=== PATIENT | female | born 1950 ===

== ENCOUNTER 2016-08-23 17:27 | Inpatient (IN) | payer MEDICARE, MEDICAID ==
[2016-08-23] VITALS (10 sets, daily range): BP systolic 75–121; BP diastolic 52–92; PULSE 64–81; RESP 16–24; O2SAT 90–100
[~2016-08-23] VITALS: Ht 165.1 cm; Wt 78.5 kg
[~2016-08-23 17:27] MED LIST: ALBU17AE22 INH; AMLO-39 PO; CIPR250T45 PO; KEP500T PO; LOPRESSOR25 MG PO; POTA10TA23 PO; PRINIVIL PO; [UNRECOGNIZED DRUG - CODE] PO; tylenol #3 PO
[2016-08-23] MEDS ORDERED: 0.9% Sodium Chloride 1,000 ML IV ONE ×4 (17:36→19:00)
[2016-08-23] MEDS ORDERED: Albuterol-Ipratropium 3 mL Inhalation Solution NEB ONE (17:40)
[2016-08-23 17:50] LABS: BASOPHILS % (AUTO) 0.1 % (0-3); EOSINOPHILS % (AUTO) 0 % (0-5); MONOCYTES % (AUTO) 3.3 % (4-12); Mean Corpuscular Hemoglobin 28.6 pg (27.0-35.0); Mean Corpuscular Volume 93.6 fL (81-100); NEUTROPHILS % (AUTO) 92.7 % (40-74); Platelet Count 239 bil/L (150-400)
[2016-08-23] MEDS ORDERED: Ketamine 10 mg/mL 20 mL Inj ONE (17:56)
[2016-08-23] MEDS ORDERED: Ketamine 10 mg/mL 20 mL Inj IV ONE ×2 (18:00→20:00)
--- NOTE | 2016-08-23 18:04 | ABG ---
DateTimeAnalyzed 18:00:00 -_ pH ____7.133 - pCO2 ___80.4__ -mmHg pO2 ___24.8__ -mmHg HCO3- ___25.8__ -mmol/L ABE ___-3.9__ -mmol/L tHb ____9.5__ -g/dL O2Hb ___37.5__ -% COHb ____3.9__ -% MetHb ____1.1__ -% sO2 ___39.5__ -% FIO2 ___31.0__ -% Drawn By lab - Date/Time Notified____ 18:04:00 -_ Oxygen Device 1 __CANNULA - Notified By jj - Notified Whom dr okelley - Age 60 -years B 760 -mmHg tO2 ____5.0__ -Vol% Pj test N/A -
[2016-08-23] MEDS ORDERED: Ondansetron 2 mg/mL 2 mL Inj IVPUSH ONE ×2 (18:25→18:45)
--- NOTE | 2016-08-23 18:25 | DRSVH ---
PROCEDURE: X-RAY CHEST ONE VIEW, PORTABLE ([id number]) INDICATIONS: 66 year-old female with hypoxia, fever and cough. TECHNIQUE: One view of the chest was acquired. COMPARISON: [facility], , ABD ACUTE SERIES, 05/12/2014, 17:51. [facility] , , CHEST 1VW (PORTABLE), 02/23/2014, 21:36. [facility], , CHEST 2VW, 02/22/2014, 12: 33. FINDINGS: Surgical changes and devices: None. Lungs and pleura: No pleural effusions or pneumothorax. Patchy right perihilar air space opacities a re present. Mediastinum: Mediastinal contours appear normal. Heart size is normal given AP technique. Bones and chest wall: No suspicious bony lesions. Overlying soft tissues appear unremarkable. IMPRESSION: Patchy right perihilar aspiration versus early pneumonia. Dictated by: Luis Manuel Moran M.D. on 08/23/2016 at 18:23 Approved by: Luis Manuel Moran M.D. on 08/23/2016 at 18:23
[2016-08-23 18:26] LABS: Magnesium 1.6 mg/dL (1.6-2.6)
--- NOTE | 2016-08-23 18:28 | ED.REPORT ---
HPI-Dyspnea / Wheezing Date of Service Aug 23, 2016 ED Provider: Nicholas Spivey MD A 66 year old female with a history of pneumonia, insomnia, seizures, osteoarthritis, hypertension, asthma, and presumed sleep apnea is brought to the ED via EMS due to shortness of breath. The pt reports that she always experiences some difficulty breathing, but is worse today. This is accompanied by a productive cough, though she denies bloody sputum. She also denies chest pain, nausea, fever, or chills. Per pt's daughter, the pt exerted herself more than usual last night by cooking for a large family. She then slept all day today despite attempts to wake her. Pt's daughter suspects that this is due to the pt taking too much trazodone and gabapentin last night, as well as possibly other pain medications given to the pt by friends. The pt has been given such pain medication before due to the her osteoarthritis pain, and has overdosed. Pt was altered at initial presentation in the ED, but improves significantly within 1.5 hours. Nursing Notes Stated Complaint: SHORTNESS OF BREATH Chief Complaint: Respiratory Complaints Nursing Notes Reviewed: Yes ([employer], [employer] not reconciled) Allergies: Coded Allergies: Penicillins (Verified Allergy, Severe, HIVES AND SWOLLEN TONGUE, 08/23/16) ibuprofen (Verified Allergy, Unknown, 08/23/16) Family state pt gets a rash. Scheduled AmLODIPine-Expunged Drug, Do Not Renew! (AmLODIPine-Expunged Drug, Do Not Renew! ) 5 Mg Tablet 5 MG PO DAILY Ciprofloxacin Hcl (Cipro) 250 Mg Tablet 250 MG PO BID Lisinopril-Expunged Drug, Do Not Renew! (Lisinopril-Expunged Drug, Do Not Renew! ) 40 Mg Tablet 40 MG PO DAILY MAGNESIUM OXIDE-Expunged Drug, Do Not Renew! (MAG-OX 400-Expunged Drug, Do Not Renew!) 400 Mg Tablet 400 MG PO DAILY Metoprolol Tart-Expunged Drug, Do Not Renew! (Metoprolol Tart-Expunged Drug, Do Not Renew!) 25 Mg Tab 25 MG PO BID Potassium Chl-Expunged Drug, Do Not Renew! (R-Pnw-Asjgtvco Drug, Do Not Renew!) 10 Meq Tab.prt.sr 10 MEQ PO DAILY levETIRAcetam-Expunged Drug, Do Not Renew! (Keppra-Expunged Drug, Do Not Renew! ) 500 Mg Tablet 500 MG PO BID Scheduled PRN ([tylenol #3 ]) 1 TAB PO QID PRN PRN as needed for pain Albuterol-Expunged Drug, Do Not Renew! (Albuterol-Expunged Drug, Do Not Renew!) 8.5 Gm Aero 8.5 GM INH QID PRN PRN General Time Seen by MD: 18:16 Chief Complaint Other (Difficulty breathing) Hx Obtained From: Patient, Daughter, EMS Arrived By: Ambulance Sudden in Onset?: No Onset Occurred: 9 - 12 hours ago Symptom Duration: Since onset Recent Healthcare: No recent doctor visit, No recent hospitalization Similar Sx Previous: No Past Medical History Past Medical History Notes: Admit for seizure in 2010 Past Medical History History of seizure Hypertension History of URETHRITIS Pneumonia Insomnia History of depression Asthma History of polysubstance overdose attempt History of presumed obstructive sleep apnea but not yet had a sleep study as of 2010 Past Surgical History none reported Smoking History Current Every Day Smoker Social History Drug Use: Other (history of narcotics abuse per EMR, no history of IVDA) Other Social History: Good social support Ambulatory Status Independent Review of Systems Constitutional: Denies: Chills, Fever Respiratory: Reports: Prod cough, clear, Shortness of breath, Denies: Prod cough, bloody Cardiovascular: Denies: Chest pain Musculoskeletal: Denies: Back pain, Neck pain Skin: Denies Rash Complete sys rev & neg: except as marked. GI: Denies: Abdominal pain, Nausea Psychiatric: Reports: Confusion Physical Exam Initial Vital Signs Vital Signs (First) Date Time Temp Pulse Resp B/P Pulse Ox O2 Delivery O2 Flow Rate FiO2 08/23/16 17:29 81 96 Room Air 08/23/16 17:48 37.7 24 114/92 3 08/23/16 18:19 40 Initial VS: Reviewed, Vital signs abnormal General/Constitutional: Awake, Alert Appearance / Presentation: Positive: Obese sitting upright on BiPAP answers questions appropriately at this point coughing Neck: Atraumatic, Supple, Full range of motion Respiratory / Chest: Atraumatic, Breath sounds = bilat, No respiratory distress diminished breath sounds Cardiovascular: Heart rate NL, Regular rhythm, Heart sounds NL has pulse but getting low blood pressures ENT: Atraumatic, Airway patent, Mucous membranes moist Abdomen: Atraumatic, Soft, Non-tender Back: Atraumatic, Full range of motion Lower Extremity / Pelvis / MS: Atraumatic, Full range of motion, No edema Skin: Atraumatic, Color NL, No rash, Warm, Dry Neurologic: Oriented X3, Speech NL, No motor deficits, No sensory deficits Head / Eyes: Atraumatic, Normocephalic, PERRL, EOMI Upper Extremity / MS: Atraumatic, Full range of motion Psychiatric: Affect NL, Mood NL Interpretation & Diagnostics Lab Results Interpretation Result Diagram: 08/23/16 1740 08/23/16 1740 Test 08/23/16 17:40 White Blood Count 24.0th/mm3 (3.8-10.1) Red Blood Count 3.60mil/mm3 (3.90-5.20) Hemoglobin 10.3g/dL (12.0-15.6) Hematocrit 33.7% (35.0-46.0) Mean Corpuscular Volume 93.6fL (81-100) Mean Corpuscular Hemoglobin 28.6pg (27.0-35.0) Mean Corpuscular Hemoglobin Concent 30.6% (32.0-37.0) Red Cell Distribution Width 13.6% (12.3-15.4) Platelet Count 239bil/L (150-400) Neutrophils (%) (Auto) 92.7% (40-74) Lymphocytes (%) (Auto) 3.0% (14-46) Monocytes (%) (Auto) 3.3% (4-12) Eosinophils (%) (Auto) 0% (0-5) Basophils (%) (Auto) 0.1% (0-3) D-Dimer 1.6mg/L (<0.50) Sodium Level 133mEq/L (134-144) Potassium Level 4.3mEq/L (3.5-5.2) Chloride Level 94mEq/L (97-108) Carbon Dioxide Level 22mmol/L (18-29) Blood Urea Nitrogen 29mg/dL (8-27) Creatinine 2.54mg/dL (0.57-1.00) Estimat Glomerular Filtration Rate 27mL/min (>59) Glucose Level 70mg/dL (60-99) Calcium Level 8.4mg/dL (8.5-10.1) Magnesium Level 1.6mg/dL (1.6-2.6) Total Bilirubin 0.5mg/dL (0.0-1.2) Aspartate Amino Transf (AST/SGOT) 24U/L (0-50) Alanine Aminotransferase (ALT/SGPT) 8U/L (0-32) Alkaline Phosphatase 92U/L (25-165) Troponin T < 0.010ug/L (0.0-0.011) Total Protein 6.5g/dL (6.4-8.4) Albumin 3.1g/dL (3.4-5.0) Lab Results Interpretation: blood gas: pH 7.1333/pCO2 80/pO 24.8/cHCO3- 25.8/cBase -3.9 ABCs severe leukocytosis CMP renal failure, acuity uncertain Severe lactic acid elevation consistent with septic shock Influenza negative blood cultures cultures 2 blood gas 21:18: pH 7.363/pCO2 33/pO2 69.2/cHCO3- 18.4/cBase -5.9 ECG Interpretation ECG Interpretation: normal sinus rhythm with a rate of 68 borderline QTC elevation no ischemic changes Time: 19:07 Interpreted by: ED physician X-Ray Chest Interpretation Chest Xray Interpretation: IMPRESSION: Patchy right perihilar aspiration versus early pneumonia. Dictated by: Luis Manuel Moran M.D. on 08/23/2016 at 18:23 Approved by: Luis Manuel Moran M.D. on 08/23/2016 at 18:23 Interpretation / Wet Read by: Interpret - Radiologist Chest Xray Interpretation: IMPRESSION: 1. Interval increased bibasilar aspiration versus evolving bronchopneumonia. 2. New endotracheal tube tip is at the thoracic outlet. Dictated by: Luis Manuel Moran M.D. on 08/23/2016 at 19:54 Approved by: Luis Manuel Moran M.D. on 08/23/2016 at 19:54 Interpretation / Wet Read by: Interpret - Radiologist Chest Xray Interpretation: ET tube in good position just above malik Interpretation / Wet Read by: Wet read ED physician Procedures Intubation Time: 19:16 Procedure Performed by: ED physician Consent / Setup / Site Prep: Consent from patient, Time-out performed, Oxygen administered, Pulse oximeter applied, cardiac monitor technician applied, Hand hygiene observed Blade / ET Tube / Route: Hazard scope, Route: oral Procedural Sedation/Analgesia: Sedation: Ketamine Neuromuscular Agent: Succinylcholine ET Confirmation: CXR Complications: None Post-Procedure: Condition improved, Tolerated procedure well, Patient stable Re-Eval/Medical Decision Med Decision/Clinical Course This is a 66-year-old female since with altered mental status and shortness of breath. Initial history is from EMS, supplemented by friends and family, and the patient. This is a patient's had prior issues with medication overdose, has not been to the hospital for a number of years-and has chronic pain from arthritis. According to family she had a big event yesterday she prepared dinner did not some activities and they think overexerted herself, and he noticed that she was much less active" mostly down" for the majority of the day. We do note that from time to time but she is not currently on narcotics prescribed to her, she has severe pain and a flareup she has been able to get some pain medicine-sided his methadone and oxycodone to help with her chronic pain, and wonder if she may have done that today. They then noted that they were having difficulty getting her up and when they got her up she is complaining of shortness of breath so EMS was contacted. EMS the patient was profoundly hypoxic and hypotensive and somewhat altered. On arrival here she remained hypoxic, hypotensive and ill. She was initially alert enough answering questions that she did not. She needed an emergent intubation. A blood gas was obtained and did not demonstrate hypercapnic respiratory failure and the patient was started on BiPAP. She clinically seems improved with this and became much more alert and interactive telling she is having cough and trouble breathing, that started today. So she seemed to clinically be responded. A chest x-ray demonstrated an infiltrate. Influenza was negative. Upper we were having labile blood pressures 1 blood pressure below, subsequent blood pressure would be adequate in the low 100s, and the patient sitting up and talking to us and her mentation was markedly improved from her initial presentation per family. However, while in the ED she suddenly got worse. Her blood pressure went down and her responsiveness decreased-at this point the decision was made to proceed with intubation. Patient underwent rapid sequence intubation with ketamine due to the hypotension is sedative agency and succinylcholine. She was in anterior and somewhat difficult intubation with 4 views of the cords, but the gum elastic bougie was able to easily be passed and a 7/2 ET tube was placed. There were no evidence of any desaturation patient had been preoccupied on BiPAP and satting 100% throughout the procedure, and positive end-tidal CO2 waveform and follow-up chest x-ray confirmed the tube in the trachea, although the chest x-ray indicated there was high at the thoracic abdomen line and it was advanced follow-up chest x-ray demonstrated it in proper position. The patient seemed multiple liters of fluid but remained hypotensive was given empiric dose of steroids, and norepinephrine pressors was ordered-but as a PICC line was obtained, and patient received prescription for liters of saline, the blood pressure across the 95 systolic range greater than a map of 65/pressors were not initiated. The [facility] modified with cefepime for her penicillin allergy (again per hospital protocol). Utox was obtained and was negative. At this point the clinical history strongly suggests patient may have taken some sort of medication to help with her discomfort that caused sedation, lead to aspiration and hypoxia in the setting of suspected sleep apnea and is now resulting in septic shock. Patient's being admitted to the unit for continued management. Source of Hx: Old records Re-Evaluation/Progress #1: Time of Eval: 19:16 Patient Status: Condition improved Re-Evaluation/Progress Note: Pt rechecked, whose blood pressure and responsiveness are decreasing. Pt is intubated without complications and pt's condition improves. Re-Evaluation/Progress #2: Time of Eval: 20:08 Patient Status: Condition unchanged Re-Evaluation/Progress Note: Pt rechecked, who is intubated. Additional sedation is administered. The plan for admission is discussed with the pt's family. Pt family understands and agrees with the plan. All questions are addressed at this time. Consultation : Referral / Consult Name: Mayte Faustin MD Consulted With: Hospitalist Call Returned at: 19:41 Licensed Practical Nurse Instructor: Agrees with eval, Agrees with plan, Accepts admit Note: Spoke to Dr. Faustin, hospitalist, regarding pt's case. Dr. Faustin agrees with the evaluation and agrees to admit the pt. Differential Diagnosis: Positive: Pneumonia, Respiratory failure, Negative: Acute coronary syndrome, Anxiety, Cardiogenic shock, Hypertensive emergency, Hyperventilation, Inhalation injury Counseled Regarding: Diagnosis, Lab results, Need for admission Discharge & Departure Impression: Primary Impression: Hypercapnic respiratory failure Chronicity: acute Qualified Code: J96.02 - Acute respiratory failure with hypercapnia Additional Impressions: Aspiration pneumonia Aspiration pneumonia type: unspecified Laterality: right Lung location: unspecified part of lung Qualified Code: J69.0 - Pneumonitis due to inhalation of food and vomit Difficult airway for intubation Encounter type: initial encounter Qualified Code: T88.4XXA - Failed or difficult intubation, initial encounter Renal failure Septic shock Disposition: ADMITTED TO HOSPITAL Discharge Condition All VS Reviewed: Yes Condition: Stable Referrals: NOPCP (PCP) Crit Care Except Billable Proc Time Spent: 75-104 minutes Scribe Attestation Portions of this note were transcribed by Rhoda Cai. I, Dr. Spivey personally performed the history, physical exam and medical decision-making; I reviewed and confirmed the accuracy of the information in the transcribed note. Signed by: Sarath Tucker, 08/23/2016, 21:39 Nicholas Spivey MD Aug 23, 2016 18:28 RHODA CAI Aug 23, 2016 18:54
[2016-08-23] MEDS ORDERED: Cefepime Inj 2 GM in IV Premix 1 EACH IV ONE (18:35)
[2016-08-23] MEDS ORDERED: levoFLOXacin Inj 750 MG in IV Premix 1 EACH IV ONE (18:35)
[2016-08-23] MEDS ORDERED: Vancomycin Dose per Pharmacist XX ONE (18:35)
[2016-08-23] MEDS ORDERED: Cefepime Inj 2 GM in Dextrose 5% Minibag Plus 50 ML IV ONE (18:36)
[2016-08-23 18:41] LABS: TROPONIN T < 0.010 ug/L (0.0-0.011)
[2016-08-23] MEDS ORDERED: Cefepime Inj 2,000 MG in Dextrose 5% Minibag Plus 50 ML IV SCH (18:41)
[2016-08-23] MEDS ORDERED: metroNIDAZOLE Inj 500 MG in IV Premix 1 EACH IV ONE (18:45)
[2016-08-23] MEDS ORDERED: Sodium Chloride LOK Flush 10 mL Syringe IVFLUSH PRN ×2 (18:45)
[2016-08-23] MEDS ORDERED: Hydrocortisone 50 mg/mL 2 mL Inj IVPUSH ONE (19:35)
[2016-08-23] MEDS ORDERED: Ketamine 100 mg/mL 5 mL Inj ONE (19:46)
[2016-08-23] MEDS ORDERED: Ketamine 100 mg/mL 5 mL Inj IV ONE (19:50)
[2016-08-23] MEDS ORDERED: Vancomycin Inj 1,750 MG in Dextrose 5% 500 ML IV ONE ×2 (19:55→20:50)
--- NOTE | 2016-08-23 19:56 | DRSVH ---
PROCEDURE: X-RAY CHEST ONE VIEW, PORTABLE ([id number]) INDICATIONS: 66-year-old female with intubation. TECHNIQUE: One view of the chest was acquired. COMPARISON: [facility], CR, XR CHEST 1VW (PORTABLE), 08/23/2016, 17:58. [facility], CR, ABD ACUTE SERIES, 05/12/2014, 17:51. [facility], CR, CHEST 1VW (PORTABLE), , 21:36. FINDINGS: Surgical changes and devices: New endotracheal tube is present, with tip 7.5 cm above the malik. Lungs and pleura: No pleural effusions or pneumothorax. There are interval increased bibasilar airsp raghavendra opacities.. Mediastinum: Mediastinal contours appear normal. Heart size is normal given AP technique. Bones and chest wall: No suspicious bony lesions. Overlying soft tissues appear unremarkable. IMPRESSION: 1. Interval increased bibasilar aspiration versus evolving bronchopneumonia. 2. New endotracheal tube tip is at the thoracic outlet. Dictated by: Luis Manuel Moran M.D. on 08/23/2016 at 19:54 Approved by: Luis Manuel Moran M.D. on 08/23/2016 at 19:54
[2016-08-23] MEDS ORDERED: Vecuronium 1,000 mCg/mL 10 mL Inj IVPUSH ONE (20:05)
[2016-08-23] MEDS: fentaNYL-PF 50 mCg/mL 2 mL Inj IVPUSH ONE ×2 (20:08→20:10)
[2016-08-23] MEDS ORDERED: Alum-Mag Hydrox-Simeth 30 mL Suspension PO PRN (20:40)
[2016-08-23] MEDS ORDERED: Ondansetron 2 mg/mL 2 mL Inj IVPUSH PRN (20:40)
[2016-08-23] MEDS ORDERED: Polyethylene Glycol (PEG) 17 Gm Powder PO PRN (20:40)
[2016-08-23] MEDS ORDERED: Senna-Docusate 8.6-50 mg Tablet PO PRN (20:40)
--- NOTE | 2016-08-23 21:19 | DRSVH ---
PROCEDURE: X-RAY PICC LINE PLACEMENT BY NURSE ([id number]) INDICATIONS: 66 year-old female with septic shock. COMPARISON: None. FINDINGS: PICC was placed by the intravenous therapy team. Fluoroscopic spot film demonstrates tip of PICC in the cavoatrial junction. IMPRESSION: Tip of PICC lies within the cavoatrial junction. Dictated by: Luis Manuel Moran M.D. on 08/23/2016 at 21:17 Approved by: Luis Manuel Moran M.D. on 08/23/2016 at 21:17
--- NOTE | 2016-08-23 21:29 | ABG ---
DateTimeAnalyzed 21:23:00 -_ pH ____7.363 - 7.350 7.450 pCO2 ___33.1__ -mmHg 35.0 45.0 pO2 ___69.2__ -mmHg 69.0 116 HCO3- ___18.4__ -mmol/L 22.0 26.0 ABE ___-5.9__ -mmol/L -2.0 2.0 tHb ____8.0__ -g/dL O2Hb ___92.6__ -% COHb ____2.4__ -% MetHb ____1.1__ -% sO2 ___96.0__ -% FIO2 ___50.0__ -% PEEP ____5.0__ -cmH2O Set_RR ___18.0__ -b/min Vt __450.0__ -L Drawn By MM - Date/Time Notified____ 21:28:00 -_ Spontaneous_RR ___18.0__ -b/min Oxygen Device 1 VENTILATOR - Notified By MM - Notified Whom DR KING - Age 60 -years B 762 -mmHg tO2 ___10.5__ -Vol% Pj test N/A -
--- NOTE | 2016-08-23 21:31 | DRSVH ---
PROCEDURE: X-RAY CHEST ONE VIEW, PORTABLE ([id number]) INDICATIONS: 66 year-old female with endotracheal tube adjustment and PICC placement. TECHNIQUE: One view of the chest was acquired. COMPARISON: [facility], CR, XR CHEST 1VW (PORTABLE), 08/23/2016, 19:42. [facility], CR, XR CHEST 1VW (PORTABLE), 08/23/2016, 17:58. [facility], CR, ABD ACUTE SERIES, 05/12/2014, 17:51. FINDINGS: Surgical changes and devices: Endotracheal tube has been advanced, with tip now 4.8 cm above the davis na. New right PICC is present, with tip at the cavoatrial junction. Lungs and pleura: No pleural effusions or pneumothorax. Bibasilar opacities persist, more extensive on the right. Mediastinum: Mediastinal contours appear normal. Heart size is normal. Bones and chest wall: No suspicious bony lesions. Overlying soft tissues appear unremarkable. IMPRESSION: 1. Endotracheal tube and right PICC are in expected positions. 2. Persistent bibasilar aspiration versus bronchopneumonia. Dictated by: Luis Manuel Moran M.D. on 08/23/2016 at 21:30 Approved by: Luis Manuel Moran M.D. on 08/23/2016 at 21:30
[2016-08-23 22:36] LABS: APPEARANCE,URINE HAZY (CLEAR,HAZY); COLOR,URINE DARK YELLOW (YELLOW); OCCULT BLOOD,URINE NEGATIVE (NEGATIVE); UROBILINOGEN,URINE NORMAL (NORMAL)
[2016-08-23] MEDS: Norepineph 8,000 mCg/250 mL NS 8,000 MCG in IV Premix 1 EACH IV SCH (22:57)
[2016-08-23] MEDS: Famotidine Inj 50 ML IV SCH (22:57)
--- NOTE | 2016-08-23 23:00 | NUR ---
Pt admitted from ED and transferred via gurney. Pt was oxygenated with ambu bag during transport. Moved over to ccu bed with slide board and hooked up to ventilator. Vent settings: 50/5/18/450 with sats at 100%. Lung sounds equal bilat. and slightly course. Pt is flaccid and unresponsive sec to sedation given during intubation in the ED. Restraints started in the ED and continued in CCU at 2300 upon admit to protect lines/tubes. Will continue to monitor pt closely. Supportive family at bedside.
[2016-08-23] MEDS ORDERED: 0.9% Sodium Chloride 250 ML ONE (23:05)
[2016-08-24] VITALS (12 sets, daily range): BP systolic 107–141; BP diastolic 48–73; PULSE 53–70; RESP 14–18; O2SAT 99–100
[2016-08-24] MEDS ORDERED: CITA20TA11 PO (00:43)
[2016-08-24] MEDS ORDERED: ALBU8.5H2 INHALATION (00:43)
[2016-08-24] MEDS ORDERED: HYDR25TA4 PO (00:43)
[2016-08-24] MEDS ORDERED: GABA-502 PO (00:43)
[2016-08-24] MEDS ORDERED: PIRO20CA2 PO (00:43)
[2016-08-24] MEDS ORDERED: MONT10TA23 PO (00:43)
[2016-08-24] MEDS ORDERED: FEXO1TAB4 PO (00:43)
[2016-08-24] MEDS ORDERED: FLUT16SP NS (00:43)
[2016-08-24] MEDS ORDERED: TRAZ-115 PO (00:43)
--- NOTE | 2016-08-24 01:38 | PCM.HPMED ---
Subjective Date of Service Aug 23, 2016 Primary Provider: Admitting Physician: Klaudia Gonzalez MD Primary Care Physician: [place] Attending Physician: Klaudia Gonzalez MD Chief Complaint: Dyspnea History of Present Illness: Patient is a 66-year-old female with seizures, osteoarthritis, hypertension and presumed sleep apnea presenting with dyspnea. Patient is accompanied at bedside by family at time of visit. Much of the history is obtained from her son and [id number] as the patient is currently sedated and intubated on the ventilator. Per the patient's son, the patient is usually quite sedentary at home but yesterday she was more active than usual, preparing a large meal for her family and he feels she over exerted herself. He believes the patient possibly took some methadone not prescribed to her in addition to her usual medications for the arthritis pain from overexerting herself. According to her son, the patient usually wakes up between noon and 2PM; however, today she was found to be more somnolent and unarousable by her family. EMS was summoned and patient was brought to [facility] ED for further evaluation. In the ED, the patient was placed on BiPAP with brief improvement in her mental status but subsequently became more somnolent and hypotensive with AB.133 / 80.4 / 24.8 / 25.8. The patient was fluid resuscitated and subsequently intubated. In the ED, vitals: 36.6, HR 64, RR 18 on mechanical ventilator satting 97%, BP 96/52. Notable labs: WBC 24.0, BUN 29, creatinine 2.54, lactic acid 4.1. D- dimer 1.6. Patient received 4L NS in the ED with continued hypotension and norepinephrine was started. Review of Systems: Unable to obtain. Patient is sedated and on mechanical ventilator. Allergies Coded Allergies: Penicillins (Verified Allergy, Severe, HIVES AND SWOLLEN TONGUE, 08/23/16) ibuprofen (Verified Allergy, Unknown, 08/23/16) Family state pt gets a rash. Home Medications Per patient list from 12/2014. Note, medication list needs reconciliation: Montelukast 10mg daily Gabapentin 300mg BID Metoprolol 25mg BID Citalopram 20mg daily Lisinopril 40mg daily HCTZ 25mg daily Piroxicam 20mg daily Levetiracetam 500mg BID Trazodone 50mg QHS ProAir 90mcg inhaler 2 puffs Q4-6 hours Ping D PMH History of seizure Hypertension History of urethritis Pneumonia Insomnia History of depression Asthma History of polysubstance overdose attempt History of presumed obstructive sleep apnea but not yet had a sleep study as of 2010 . 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 External ears without defect. Pupils equal, round, and reactive to light. Anicteric sclerae, moist conjunctivae. Endotracheal tube present. Neck: Supple. No lymphadenopathy or thyromegaly. Cardiovascular: Regular rate and rhythm with no murmurs, rubs, or gallops appreciated Pulmonary: Coarse bilaterally Abdomen: Bowel tones present. Soft, nontender, nondistended. No hepatosplenomegaly or masses appreciated. Extremities: No clubbing, cyanosis, edema, or lymphadenopathy appreciated. Skin: Normal temperature, turgor, and texture; no rash, ulcers, or subcutaneous nodules appreciated. Neurological: Unable to assess, patient is sedated. Psychiatric: Unable to assess, patient is sedated. Lab and Diagnostics Result Diagram: 08/23/16173908/23/[id number] 12-lead ECG Date of Service: 08/23/162017 PROCEDURE: X-RAY CHEST ONE VIEW, PORTABLE ([id number]) INDICATIONS: 66 year-old female with endotracheal tube adjustment and PICC placement. TECHNIQUE: One view of the chest was acquired. COMPARISON: [facility], CR, XR CHEST 1VW (PORTABLE), 08/23/2016, 19: 42. [facility], CR, XR CHEST 1VW (PORTABLE), 08/23/2016, 17:58. [facility], CR, ABD ACUTE SERIES, 05/12/2014, 17:51. FINDINGS: Surgical changes and devices: Endotracheal tube has been advanced, with tip now 4.8 cm above the malik. New right PICC is present, with tip at the cavoatrial junction. Lungs and pleura: No pleural effusions or pneumothorax. Bibasilar opacities persist, more extensive on the right. Mediastinum: Mediastinal contours appear normal. Heart size is normal. Bones and chest wall: No suspicious bony lesions. Overlying soft tissues appear unremarkable. IMPRESSION: 1. Endotracheal tube and right PICC are in expected positions. 2. Persistent bibasilar aspiration versus bronchopneumonia. Dictated by: Luis Manuel Moran M.D. on 08/23/2016 at 21:30 Approved by: Luis Manuel Moran M.D. on 08/23/2016 at 21:30 Assessment & Plan Patient is a 66-year-old female with seizures, osteoarthritis, hypertension and presumed sleep apnea presenting with dyspnea and admitted for acute hypercapnic hypoxic respiratory failure: 1. Severe sepsis. Present on admission. Active -Meets criteria with WBC (24.0), RR (24) with evidence of end organ dysfunction with creatinine 2.54 and lactic acid 4.1 -Procalcitonin pending -Trend lactic acid until normalizes -Patient has received 5L NS -Norepinephrine to maintain MAP>65 2. Acute hypercapnic hypoxic respiratory failure. Present on admission. Active -Etiology multifactorial, medication overdose, pneumonia, CASSI with obesity hypoventilation -Current vent settings PRVC Vt 450, PEEP 5, RR 18 -Repeat AB.363 / 33.1 / 69.2 / 18.4 -Continue pulmonary toilet -Chest x-ray and ABG in the morning 3. Pneumonia. Present on admission. Active -Chest x-ray shows bibasilar opacities -Influenza screen negative -Pending studies: Procalcitonin, Legionella and strep pneumo ur ag, Respiratory virus PCR, sputum culture, MRSA screen -Received cefepime, levofloxacin, metronidazole and vancomycin in the ED. Note patient is reportedly allergic to penicillins. Will continue cefepime, metronidazole. Start linezolid for MRSA coverage given patient's allergy to penicillins. Narrow antibiotics with culture results 4. Acute kidney injury. Present on admission. Active -Creatinine 2.54 -Possibly secondary to pre-renal and ischemic ATN -Avoid nephrotoxins -Follow with CMP 5. Suspected substance abuse. Present on admission. Active -Patient's son suspects patient is using prescription drugs, specifically methadone, from friends. Previous history of overdose requiring intubation -Urine toxicology screen -Social work referral Patient Status: Patient is admitted under inpatient status with expected length of stay greater than 2 midnights due to severity of presenting symptoms, risk of adverse event, and complexity of treatment plan. GI Prophylaxis: H2 geetha VTE Prophylaxis: Sub-Q Heparin (Unfractionated) Resuscitation Status: CPR: Attempt Resuscitation Attending Statement Pt seen and examined by myself and agree with above plan. Jesus Manuel Zhao DO Aug 23, 2016 22:35 Mayte Faustin MD Aug 27, 2016 19:05
[2016-08-24] MEDS: fentaNYL 2,500 mCg/250 mL 2,500 MCG in IV Premix 1 EACH IV SCH ×2 (03:00→23:55)
[2016-08-24] MEDS: Propofol Inj 1,000,000 MCG in IV Premix 1 EACH IV SCH ×4 (03:00→22:41)
[2016-08-24 05:26] LABS: EOSINOPHILS % (AUTO) 0 % (0-5); Mean Corpuscular Hemoglobin 29.1 pg (27.0-35.0); Mean Corpuscular Volume 90.6 fL (81-100); Platelet Count 198 bil/L (150-400)
[2016-08-24 05:38] LABS: Magnesium 1.4 mg/dL (1.6-2.6)
[2016-08-24 05:58] LABS: BASOPHILS % (AUTO) 0 % (0-3); MONOCYTES % (AUTO) 2 % (4-12); NEUTROPHILS % (AUTO) 76 % (40-74)
[2016-08-24] MEDS ORDERED: Mag Sulf 2 Gm/50mL IV Premix(Mag < 1.6 & Creat > 2) IV ONE (06:45)
[2016-08-24] MEDS ORDERED: KCl 20 mEq/100 mL IV Premix (K 3 - 3.7 & Cr 2.1 - 2.9) IV ONE ×2 (06:45→15:00)
[2016-08-24] MEDS ORDERED: Cefepime Inj 1,000 MG in Dextrose 5% Minibag Plus 50 ML IV SCH (07:30)
--- NOTE | 2016-08-24 08:07 | PCM.PNMED ---
Subjective Date of Service Aug 24, 2016 Subjective Patient is intubated and sedated. ROS and subjective not obtainable. Exam Vital Signs Vital Sign - Last Date Time Temp Pulse Resp B/P Pulse Ox O2 Delivery O2 Flow Rate FiO2 08/24/16 04:44 66 128/55 100 50 08/24/16 04:30 Ventilator 08/24/16 04:30 36.9 18 08/23/16 17:48 3 Intake and Output 08/23/16 08/23/16 08/24/16 Cumulative From/Thru 15:00 23:00 07:00 08/23/16 17:34 - 08/24/16 06:34 Intake Total 4000 ml 1488 ml 5488 ml Output Total 600 ml 600 ml Balance 4000 ml 888 ml 4888 ml Intake IV Total 4000 ml 1488 ml 5488 ml Output Urine Total 600 ml 600 ml Gastric Drainage Total 0 ml 0 ml Exam Intubated and sedated. Normal skull. Lungs are clear with good inspiration on ventilator Heart is regular without murmur Abdomen is distended but nontender. Extremities are free of edema good pedal and radial pulses. Skin is free of rash or lesions. Patient has no spontaneous breathing or movement. She is sedated with fentanyl and propofol. IVs and Medications Medications Reviewed: Medications were reviewed in detail Lab and Diagnostics Result Diagram: 08/24/[id number]/24/[id number] 12-lead ECG Date of Service: 08/23/162017 PROCEDURE: X-RAY CHEST ONE VIEW, PORTABLE ([id number]) INDICATIONS: 66 year-old female with endotracheal tube adjustment and PICC placement. TECHNIQUE: One view of the chest was acquired. COMPARISON: [facility], CR, XR CHEST 1VW (PORTABLE), 08/23/2016, 19: 42. [facility], CR, XR CHEST 1VW (PORTABLE), 08/23/2016, 17:58. [facility], CR, ABD ACUTE SERIES, 05/12/2014, 17:51. FINDINGS: Surgical changes and devices: Endotracheal tube has been advanced, with tip now 4.8 cm above the malik. New right PICC is present, with tip at the cavoatrial junction. Lungs and pleura: No pleural effusions or pneumothorax. Bibasilar opacities persist, more extensive on the right. Mediastinum: Mediastinal contours appear normal. Heart size is normal. Bones and chest wall: No suspicious bony lesions. Overlying soft tissues appear unremarkable. IMPRESSION: 1. Endotracheal tube and right PICC are in expected positions. 2. Persistent bibasilar aspiration versus bronchopneumonia. Dictated by: Luis Manuel Moran M.D. on 08/23/2016 at 21:30 Approved by: Luis Manuel Moran M.D. on 08/23/2016 at 21:30 Assessment & Plan Patient is a 66-year-old female with seizures, osteoarthritis, hypertension and presumed sleep apnea presenting with dyspnea and admitted for acute hypercapnic hypoxic respiratory failure: 1. Severe sepsis. Present on admission. Active -Meets criteria with WBC (24.0), RR (24) with evidence of end organ dysfunction with creatinine 2.54 and lactic acid 4.1 -Procalcitonin pending -Trend lactic acid until normalizes -Patient has received 5L NS -Norepinephrine to maintain MAP>65. The patient relates an episode 6 and is on norepinephrine at 7 mils per hour. We will continue vasopressor support and add back in saline at 100 Osmany. 2. Acute hypercapnic hypoxic respiratory failure. Present on admission. Active -Etiology multifactorial, medication overdose, pneumonia, CASSI with obesity hypoventilation -Current vent settings PRVC Vt 450, PEEP 5, RR 18 -Repeat AB.363 / 33.1 / 69.2 / 18.4 -Continue pulmonary toilet -Chest x-ray and ABG in the morning The patient remains sedated and has an FiO2 of 0.50. Well I continue to ventilate for the next 24 hours and treat the primary problem which is pneumonia. 3. Pneumonia. Present on admission. Active -Chest x-ray shows bibasilar opacities -Influenza screen negative -Pending studies: Procalcitonin, Legionella and strep pneumo ur ag, Respiratory virus PCR, sputum culture, MRSA screen -Received cefepime, levofloxacin, metronidazole and vancomycin in the ED. Note patient is reportedly allergic to penicillins. Will continue cefepime, metronidazole. Start linezolid for MRSA coverage given patient's allergy to penicillins. Narrow antibiotics with culture results We will discuss antibiotic coverage with pulmonary and infectious disease. It is reasonable that she can be treated for aspiration. 4. Acute kidney injury. Present on admission. Active -Creatinine 2.54 -Possibly secondary to pre-renal and ischemic ATN -Avoid nephrotoxins -Follow with CMP Continue IV fluids. 5. Suspected substance abuse. Present on admission. Active -Patient's son suspects patient is using prescription drugs, specifically methadone, from friends. Previous history of overdose requiring intubation -Urine toxicology screen -Social work referral 6. Possible seizure disorder. POA. Sedimentation rate and Her chronically. We will confirm and meanwhile start Keppra 500 IV every 12 hours. Patient Status: Patient is admitted under inpatient status with expected length of stay greater than 2 midnights due to severity of presenting symptoms, risk of adverse event, and complexity of treatment plan. Pain Evaluation: Adequate Pain Control GI Prophylaxis: H2 geetha VTE Prophylaxis: Sub-Q Heparin (Unfractionated) VTE Mechanical Devices: Intermittant Pneumatic CD Resuscitation Status: CPR: Attempt Resuscitation Time spent 30 minutes Pj Augustin MD Aug 24, 2016 08:07
[2016-08-24] MEDS: metroNIDAZOLE Inj 500 MG in IV Premix 1 EACH IV SCH ×2 (08:09→20:05)
[2016-08-24] MEDS ORDERED: Lactated Ringer's 1,000 ML IV SCH (08:10)
[2016-08-24] MEDS ORDERED: Linezolid Inj 600 MG in IV Premix 1 EACH IV SCH (08:30)
[2016-08-24] MEDS ORDERED: Famotidine Inj 20 MG in IV Premix 1 EACH IV SCH (08:30)
[2016-08-24] MEDS: Heparin 5,000 Unit/mL Inj SUBQ SCH ×2 (08:45→16:10)
--- NOTE | 2016-08-24 08:50 | DRSVH ---
PROCEDURE: X-RAY CHEST ONE VIEW, PORTABLE ([id number]) INDICATIONS: intubated, pneumonia TECHNIQUE: One view of the chest was acquired. COMPARISON: [facility], CR, XR CHEST 1VW (PORTABLE), 08/23/2016, 20:58. [facility], CR, XR CHEST 1VW (PORTABLE), 08/23/2016, 19:42. [facility], CR, XR CHEST 1VW (POR TABLE), 08/23/2016, 17:58. FINDINGS: Surgical changes and devices: ETT is present, tip of which is 25 mm above the malik. Right arm PICC is present, tip of which is at the cavoatrial junction. Lungs and pleura: No pleural effusions or pneumothorax. There is decreased, moderate right basilar a irspace opacity. No change in moderate left basal airspace opacity. Mediastinum: Mediastinal contours appear normal. Heart size is normal. Bones and chest wall: No suspicious bony lesions. Overlying soft tissues appear unremarkable. IMPRESSION: 1. Decreased right basal pneumonia. No change in left basal pneumonia. Continued plain film surveilla nce is recommended to ensure resolution, and to exclude underlying or central malignancy. Dictated by: Murali Lira M.D. on 08/24/2016 at 8:48 Approved by: Murali Lira M.D. on 08/24/2016 at 8:48
[2016-08-24] MEDS: Acetaminophen IV 1,000 MG in IV Premix 1 EACH IV PRN ×2 (09:21→22:41)
[2016-08-24] MEDS: 0.9% Sodium Chloride 1,000 ML IV SCH ×2 (09:28→14:50)
--- NOTE | 2016-08-24 09:48 | NUR ---
NUTRITION ASSESSMENT Assess: 66 YO F admitted to CCU with respiratory failure, sepsis, and pneumonia. Pt required intubation in the ER. Pt has been NPO X 1 day. PMHX: Seizure, HTN, PNA, insomnia, depression, asthma, polysubstance overdose attempt, presumed CASSI. DIET: NPO. LABS: BUN 34, Cr 2.10, Ca 7.2, Mg 1.4, Alb 2.6 MEDICATIONS: Reviewed. Propofol 12 ml/hr providing 317 kcal/day, Insulin, Solu-medrol, Senna. GI: No BM noted. SKIN: Wound eval pending. WEIGHT: 87.1 kg, BMI 32.0 kg/m2, Admit wt: 87.1 kg, IBW: 56.8 kg (153%). ESTIMATED NEEDS: BMI/VENT Calories: 4306-6032 kcal/day (20-22 kcal/kg BW) Protein: 85-102 g/day (1.5-1.8 g/kg IBW) NUTRITION DIAGNOSIS: 1) Inadequate oral intake related to decreased ability to consume sufficient energy as evidenced by NPO/Vent status. INTERVENTION: 1) Will await plan of care decisions. If pt remains intubated, recommend initiating nutrition support in the next 24-48 hours. MONITOR/EVALUATE: NPO/Vent status, labs, POC, GI/nutrition status. Follow per high nutrition risk guidelines.
--- NOTE | 2016-08-24 10:37 | PCM.CHPMED ---
Subjective Date of Service: Aug 24, 2016 Provider requesting consult: Pj Augustin MD Primary Physician: Admitting Physician: Klaudia Gonzalez MD Primary Care Physician: Nopcp Attending Physician: Klaudia Gonzalez MD Chief Complaint: Chief Complaint: Somnolence/unresponsive History of Present Illness: PULMONARY/ CRITICAL CARE CONSULTATION Patient is a 66 year old female seizures, osteoarthritis, hypertension and presumed sleep apnea presenting with dyspnea. She presented to [facility] via EMS on 08/23/16 after family found her to be unresponsive. History taken from H&P and ED notes as patient intubated and sedated with no family present from which history can be obtained. On 08/22/16 the patient was more active than is typical for her preparing a large meal for her family. It is believed that she overexerted herself in this process and may have taken extra pain medication for relief of her arthritis discomfort. On 08/23/16 the patient did not awaken at her usual hour and family found her to be unresponsive so EMS was called. In the ED the patient was placed on BiPAP with minor resolution of her altered mental status but then decompensated further with hypotension and increased somnolence. Patient was noted to have lactic acidosis with an ABG of 7.13/80/25/26. Subsequently intubated with fluid resuscitation started. Patient admitted to the ICU for further management. Review of Systems: Patient intubated and sedated so no ROS obtained. PMH Past Medical History Per H&P by Dr. Zhao: History of seizure Hypertension History of urethritis Pneumonia Insomnia History of depression Asthma History of polysubstance overdose attempt History of presumed obstructive sleep apnea but not yet had a sleep study as of 2010 Bedside Blood Glucose: 88 Home Medications From H&P by Dr. Zhao (needs med reconciliation): Montelukast 10mg daily Gabapentin 300mg BID Metoprolol 25mg BID Citalopram 20mg daily Lisinopril 40mg daily HCTZ 25mg daily Piroxicam 20mg daily Levetiracetam 500mg BID Trazodone 50mg QHS ProAir 90mcg inhaler 2 puffs Q4-6 hours Ping D Allergies: Coded Allergies: Penicillins (Verified Allergy, Severe, HIVES AND SWOLLEN TONGUE, 08/23/16) ibuprofen (Verified Allergy, Unknown, 08/23/16) Family state pt gets a rash. 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 Hx Alcohol Use: Yes (none x 7 years)Hx Substance Use: NoHx Tobacco Use: No ( 1 ppd none since last hospitalization) Smoking Status: Current Every Day Smoker (2 - 1PPD x 40+ years) Living Arrangement: with Family Exam Vital Signs Vital Sign - Last Date Time Temp Pulse Resp B/P Pulse Ox O2 Delivery O2 Flow Rate FiO2 08/24/16 04:44 66 128/55 100 50 08/24/16 04:30 Ventilator 08/24/16 04:30 36.9 18 08/23/16 17:48 3 Intake and Output 08/23/16 08/23/16 08/24/16 Cumulative From/Thru 15:00 23:00 07:00 08/23/16 17:34 - 08/24/16 06:34 Intake Total 4000 ml 1488 ml 5488 ml Output Total 600 ml 600 ml Balance 4000 ml 888 ml 4888 ml Intake IV Total 4000 ml 1488 ml 5488 ml Output Urine Total 600 ml 600 ml Gastric Drainage Total 0 ml 0 ml General: No Acute Distress, Other (Intubated and sedated in ICU) Head: Normal Eyes: Other (pupils equal, reactive, approx. 2mm in size) Mouth: Other (no oral thrush appreciated; OG tube in place) Chest & Lungs: Clear to auscultation & percussion, No adventitious breath sounds Cardiovascular: Regular Rate/Rhythm, No Murmurs/Rubs/Gallops Pulses: Radial (present and equal bilaterally), Dorsalis Pedis (present and equal bilaterally) Abdomen: Non-tender, Non-distended, Soft, Other (slow bowel tones) Genitourinary: Rodriguez Present Extremities: No cyanosis/clubbing/edma bilat, Other (Right PICC line) Additional Information: Ventilator settings: PRVC, FiO2 0.50, PEEP 5, rate 18, Vt 450. Peak 21, plateau 17. Lab and Diagnostics Result Diagram: 08/24/160 08/24/16 0450 Assessment & Plan Assessment Patient is a 66 year old female seizures, osteoarthritis, hypertension and presumed sleep apnea presenting with dyspnea. She presented to [facility] via EMS on 08/23/16 after family found her to be unresponsive. Patient improved minimally with BiPAP in the ED and then decompensated again. This decompensation required intubation and administration of vasopressors. Patient admitted to the ICU. Hospital day 1 1. Septic shock. - Criteria met: Leukocytosis (24), tachypnea (24), presumed respiratory source, SHAWNA (Cr 2.54), lactic acid 4.1, hypotension requiring norepinephrine. - Lactic acid normalized with appropriate fluid resuscitation. Continue IV LR at 100 ml/hr. - Procalcitonin quite elevated at 37. - Awaiting culture information. - Dr. Engle consulted and we appreciate his recommendations for antibiotics. Patient currently receiving linezolid, cefepime, and flagyl. - Norepinephrine to be continued to maintain a MAP >65. - Continue to monitor CBC, procalcitonin. 2. Acute hypercapnic hypoxic respiratory failure. - Likely multifactorial in etiology including septic shock, pneumonia, and opiate use. - Fentanyl and propofol for sedation and analgesia. - Patient appears to be tolerating current ventilator settings quite well. Will continue to monitor and change as appropriate. - ABG to be ordered QAM and as needed to assess the patient's status. 3. Right lower lobe pneumonia. - Awaiting results of respiratory viral panel, urine antigens, sputum culture, MRSA culture. - ID consultation as above in #1. - Continue to monitor with CXR. - Would have a low threshold to initiate Tamiflu in this patient. 4. Acute kidney injury. Improved. - Baseline presumed normal. - Continue IV fluids with LR 100/hr. - Continue to monitor BMP. 5. Nutrition. - OG tube in place. Presume patient may require several more days of mechanical ventilation. Could consider evaluation for tube feeding. 6. Tobacco use disorder. - Will plan to discuss cessation strategies when patient is no longer sedated. - Will likely need outpatient following concerning this as well as further evaluation for chronic lung disease. Problems: Pain Evaluation: Adequate Pain Control GI Prophylaxis: H2 geetha VTE Prophylaxis: Sub-Q Heparin (Unfractionated) VTE Mechanical Devices: Intermittant Pneumatic CD Resuscitation Status: CPR: Attempt Resuscitation Attending Statement The patient was seen and examined together with Dr. Carvalho on 08/24/2016 and I agree with the history, exam and plan as outlined in the note above. Lulu Carvalho DO Aug 24, 2016 08:32 Lee Lester MD Sep 16, 2016 10:57
--- NOTE | 2016-08-24 11:20 | CONS ---
[address] [address] CONSULTATION REPORT PATIENT: HARJIT HUFFMAN : 1950 MR#: [id number] ADMIT: 08/23/2016 JOB ID: [id number] DATE OF SERVICE: 08/24/[address] Lester for this timely consult. REASON FOR CONSULTATION: Septic shock, renal failure, acute respiratory failure and lactic acidosis. HISTORY OF PRESENT ILLNESS: The patient is a 66-year-old, woman, who reportedly was doing fairly well on August 22 when she prepared dinner for her family. Following this, there is a question about whether she ingested more than her standard dose of pain medicines or perhaps some methadone not prescribed to her, but in any event, the patient was found on August 23, when the patient's family noted she did not awaken at the usual time and were unable to arouse her, which led to transport to this facility yesterday afternoon. Upon arrival, the patient was found to have respiratory failure requiring intubation as well as shock requiring institution of vasopressor agents. Her mental status was profoundly diminished and there was evidence of renal insufficiency as well as lactic acidosis. Urine tox screen was positive for methadone, which is a drug the patient has not been prescribed and notes in the chart suggest maybe she was borrowing some from a friend. The patient was aggressively and appropriately treated with broad-spectrum cultures obtained and a chest x-ray. The chest x-ray showed what appears to be a new right lower lobe infiltrate and the patient was started on appropriate antibiotics including linezolid, metronidazole and cefepime. There were also one time doses of vancomycin and levofloxacin given. Overnight, the patient has stabilized, but remains intubated and sedated in the ICU. There is no additional history available, as there are no family members, or at least family members who are awake, to obtain a history from. The patient herself is heavily sedated, and we cannot ask even the simplest of questions. This case was discussed in great detail with the team on ICU rounds. PAST MEDICAL HISTORY: 1. Polysubstance abuse. 2. Seizure disorder. 3. Osteoarthritis. 4. Depression. 5. Asthma. 6. History of pneumonia. SOCIAL HISTORY: The patient is said to be an ex-smoker who had smoked for a long period of time, but quit a year or two ago. The patient is a previous drinker, but quit about seven years ago. There are suggestions in the chart that she may have abused prescription or nonprescription oral opiates, though this cannot be confirmed at this time. FAMILY HISTORY: Unknown, as she is intubated and sedated. REVIEW OF SYSTEMS: Not possible, as she is intubated and sedated. PHYSICAL EXAMINATION: Reveals a woman who is currently afebrile, 37.9, but that is an axillary temperature and her highest temperature of her 18 hours here in the hospital. Her pulse is 66, respiratory rate as per the ventilator. She is on 50%, 5 of PEEP, and saturating very well. Blood pressure is 120/53, and the nurse is just about to turn off her norepinephrine which has been weaned down to 0.01 mcg/kg per minute. Examination of the head reveals no evidence of trauma. The eyes have arcus senilis bilaterally, of course, but no evidence of conjunctivitis or jaundice. Nose appears normal. There is no herpetic or other abnormalities. Oral cavity is notable for the presence of an endotracheal tube as well as oral gastric tube. No herpetic lesions are seen there either, and there is no evident thrush. Neck without adenopathy. Lungs relatively clear anteriorly. We did not roll the patient over to listen to her back at this point, however. Cardiac tones: Regular rate and rhythm without notable murmur. The abdomen is slightly distended, minimally obese in this woman whose BMI is only 32. No hepatosplenomegaly is appreciated. There is no epigastric tenderness or mass appreciated. Though she does open her eyes a bit with deep palpation in the epigastrium, she does not appear to be in pain. No suprapubic fullness. She has a Rodriguez catheter in place. External genitalia appear normal. The extremities are free of cellulitis or significant edema. No skin breakdown. Neurologic exam cannot be tested at this point. LABORATORIES: Include white count 24,000 on admission, now 33,000. Diff shows 19% bands, so the patient has over 5000 bands, which is extremely impressive bandemia. Creatinine 2.1, down from 2.54 yesterday. LFTs normal. Albumin 2.6. Procalcitonin was 22 yesterday, 37 today, so strikingly elevated procalcitonin. Sodium 134. Urinalysis without pyuria. Urine tox screen positive for methadone. Multiple serologies are pending including urine for Legionella and pneumococcus. MRSA screen is pending. Sputum Gram stain and culture pending. Blood cultures pending and a respiratory viral PCR panel pending. We carefully reviewed the x-rays on the monitors in the doctor's lounge and found that there was a fairly extensive right lower lobe infiltrate seen. There is also a bit of infiltrate at the left base according to the radiologist, though this is much less obvious. IMPRESSION: The exact circumstances surrounding this patient's decline on August 23 are unclear. Apparently, the patient was looking well on August 22, and may have taken some extra pain meds because of worsening arthritic pain secondary to increased activity on New 's Day. In any event, the family could not wake her up yesterday and so she was brought here and found to be in what appears to be septic shock with lactic acidosis, leukocytosis with left shift, and borderline fever. Also noted was a ventilator dependent respiratory failure which required intubation, as well as acute renal injury. The most likely source of infection here would, of course, be the right-sided pneumonia which may represent an aspiration pneumonia. If so, this is a community aspiration pneumonia, as the patient has not been in the hospital recently, and we would expect traditional organisms such as anaerobes, oral streps and related bacteria, but not typically MRSA or gram negative rods. The risk of methicillin-resistant Staphylococcus aureus or Pseudomonas is increased, however, with substance abuse, and though we do not have complete data on that, it may be reasonable to at least cover MRSA until we have back some studies tomorrow. The patient has been started on very broad coverage which I do not think was in any way inappropriate, but my concerns are that the patient is on a chronic selective serotonin reuptake inhibitor and there could be hazardous interaction with linezolid, so we will try and avoid the use of linezolid. RECOMMENDATIONS: 1. Will check hepatitis C. 2. We await the many pending diagnostic studies for her pneumonia. 3. We will change the antibiotics from linezolid, cefepime and Flagyl to a simpler combination of ceftaroline and Flagyl. Ceftaroline provides coverage for MRSA as well as great coverage for MSSA and streptococcal organisms. It also provides some limited coverage for gram negatives, while the Flagyl will help in terms of anaerobic coverage, especially in combination with the ceftaroline. Thank you very much for this consult. We will continue to follow this interesting patient with you.
[2016-08-24] MEDS ORDERED: 0.9% Sodium Chloride 250 ML ONE (13:48)
[2016-08-24] MEDS ORDERED: 0.9% Sodium Chloride 1,000 ML ONE (13:49)
--- NOTE | 2016-08-24 15:46 | NUR ---
Wound Care Pressure ulcer protocol received, pt seen at bedside. 66 YO F admitted to CCU with respiratory failure, sepsis, and pneumonia. Pt required intubation in the ER. Currently intubated and sitting up in a ccu sport bed. Skin assessed, no pressure issues noted at any bony prominences.
--- NOTE | 2016-08-24 17:59 | NUR ---
Respiratory/neuro/cardiac SB/SR per journalist. Norepinephrine turned off at 9:45, pressure remains stable without vasopressive support. MAP >65. PRVC with 50% fi02 and 5 of peep. Oxygen saturation maintained >98% throughout shift. RASS -3. Opens eyes to voice. Nodding and v belt curer to communicate needs. Fentanyl and propofol sedation continued. Family remains at bedside.
[2016-08-24] MEDS: Norepineph 8,000 mCg/250 mL NS 8,000 MCG in IV Premix 1 EACH IV SCH (19:25)
[2016-08-24] MEDS: Famotidine Inj 50 ML IV SCH (20:05)
[2016-08-24] MEDS ORDERED: Ceftaroline Inj 600 MG in Dextrose 5% 250 ML IV ONE (20:30)
[2016-08-25] VITALS (14 sets, daily range): BP systolic 129–161; BP diastolic 62–85; PULSE 51–60; RESP 13–21; O2SAT 97–100
[2016-08-25] MEDS: 0.9% Sodium Chloride 1,000 ML IV SCH ×5 (00:46→21:53)
[2016-08-25] MEDS: Heparin 5,000 Unit/mL Inj SUBQ SCH ×4 (00:46→21:53)
--- NOTE | 2016-08-25 05:44 | ABG ---
DateTimeAnalyzed 05:39:00 -_ pH ____7.396 - 7.350 7.450 pCO2 ___28.8__ -mmHg 35.0 45.0 pO2 163 -mmHg 69.0 116 HCO3- ___17.3__ -mmol/L 22.0 26.0 ABE ___-6.3__ -mmol/L -2.0 2.0 tHb ____8.1__ -g/dL O2Hb ___97.3__ -% COHb ____0.9__ -% MetHb ____1.0__ -% sO2 ___99.2__ -% FIO2 ___50.0__ -% PEEP ____5.0__ -cmH2O Set_RR ___14.0__ -b/min Vt __450.0__ -L Drawn By AF - Date/Time Notified____ 05:43:00 -_ Spontaneous_RR ___14.0__ -b/min Oxygen Device 1 VENTILATOR - Notified By AF - Notified Whom ____Nurse - Age 60 -years B 763 -mmHg tO2 ___11.5__ -Vol% Pj test _Positive -
--- NOTE | 2016-08-25 06:03 | NUR ---
Ventilator ABG results WNL. FiO2 decreased from 50% to 40% by RT.
[2016-08-25 06:27] LABS: BASOPHILS % (AUTO) 0.1 % (0-3); EOSINOPHILS % (AUTO) 0.2 % (0-5); MONOCYTES % (AUTO) 3.1 % (4-12); Mean Corpuscular Hemoglobin 29.5 pg (27.0-35.0); Mean Corpuscular Volume 87.7 fL (81-100); NEUTROPHILS % (AUTO) 88.7 % (40-74); Platelet Count 165 bil/L (150-400)
[2016-08-25] MEDS: Propofol Inj 1,000,000 MCG in IV Premix 1 EACH IV SCH ×2 (07:06→15:31)
[2016-08-25 07:10] LABS: Phosphorus 2.5 mg/dL (2.5-4.9)
--- NOTE | 2016-08-25 07:48 | PCM.PNMED ---
Subjective Date of Service Aug 25, 2016 Subjective Patient is intubated and sedated Exam Vital Signs Vital Sign - Last Date Time Temp Pulse Resp B/P Pulse Ox O2 Delivery O2 Flow Rate FiO2 08/25/16 05:48 56 143/62 40 08/25/16 04:00 36.7 14 100 Mechanical Ventilator 08/23/16 17:48 3 Intake and Output 08/24/16 08/24/16 08/25/16 Cumulative From/Thru 15:00 23:00 07:00 08/23/16 17:34 - 08/25/16 06:00 Intake Total 1930 ml 2881 ml 73722 ml Output Total 525 ml 1000 ml 2125 ml Balance 1405 ml 1881 ml 8174 ml Intake Oral 0 ml 0 ml IV Total 1930 ml 2881 ml 97366 ml Output Urine Total 475 ml 1000 ml 2075 ml Stool Total 50 ml 50 ml Gastric Drainage Total 0 ml 0 ml # Bowel Movements 2 2 Exam Intubated and sedated. Normal head. Endotracheal tube in place. Neck supple no adenopathy. Lungs are clear with prolonged expiratory phase. No overbreathing the vent. Heart is distant and regular Abdomen is soft nondistended. Extremities are free of edema with good pedal pulses. Skin is free of rash or lesions. IVs and Medications Medications Reviewed: Medications were reviewed in detail Lab and Diagnostics Result Diagram: 08/25/1640 08/25/16539 12-lead ECG Date of Service: 08/23/162017 PROCEDURE: X-RAY CHEST ONE VIEW, PORTABLE ([id number]) INDICATIONS: 66 year-old female with endotracheal tube adjustment and PICC placement. TECHNIQUE: One view of the chest was acquired. COMPARISON: [facility], JOSE, XR CHEST 1VW (PORTABLE), 08/23/2016, 19: 42. [facility], JOSE, XR CHEST 1VW (PORTABLE), 08/23/2016, 17:58. [facility], JOSE, ABD ACUTE SERIES, 05/12/2014, 17:51. FINDINGS: Surgical changes and devices: Endotracheal tube has been advanced, with tip now 4.8 cm above the malik. New right PICC is present, with tip at the cavoatrial junction. Lungs and pleura: No pleural effusions or pneumothorax. Bibasilar opacities persist, more extensive on the right. Mediastinum: Mediastinal contours appear normal. Heart size is normal. Bones and chest wall: No suspicious bony lesions. Overlying soft tissues appear unremarkable. IMPRESSION: 1. Endotracheal tube and right PICC are in expected positions. 2. Persistent bibasilar aspiration versus bronchopneumonia. Dictated by: Luis Manuel Moran M.D. on 08/23/2016 at 21:30 Approved by: Luis Manuel Moran M.D. on 08/23/2016 at 21:30 Assessment & Plan Patient is a 66-year-old female with seizures, osteoarthritis, hypertension and presumed sleep apnea presenting with dyspnea and admitted for acute hypercapnic hypoxic respiratory failure: 1. Severe sepsis. Present on admission. Active. This is improving. This appears to be a probable aspiration pneumonia. Continue Ceftin early Flagyl per ID. -Meets criteria with WBC (24.0), RR (24) with evidence of end organ dysfunction with creatinine 2.54 and lactic acid 4.1 -Procalcitonin pending -Trend lactic acid until normalizes -Patient has received 5L NS -Norepinephrine to maintain MAP>65. The patient relates an episode 6 and is on norepinephrine at 7 mils per hour. We will continue vasopressor support and add back in saline at 100 Osmany. 2. Acute hypercapnic hypoxic respiratory failure. Present on admission. Active She is currently on FiO2 40 with PEEP of 5 rate of 14 and a VT 450. Peak pressures of 31 with mean of 11. She is on propofol at 25, and fentanyl 100. We will decrease sedation and try a pressure support trial this morning with hopes to extubate. 3. Pneumonia, probable aspiration.. Present on admission. Active -We will continue her current sertraline and Flagyl per ID. 4. Acute kidney injury. Present on admission. Active and improving with a creatinine of 1.67 today -Creatinine 2.54 at admission -Possibly secondary to pre-renal and ischemic ATN -Avoid nephrotoxins -Follow with CMP Continue IV fluids. 5. Suspected substance abuse. Present on admission. Active -Patient's son suspects patient is using prescription drugs, specifically methadone, from friends. Previous history of overdose requiring intubation -Urine toxicology screen -Social work referral 6. Possible seizure disorder. POA. Sedimentation rate and Her chronically. We will confirm and meanwhile start Keppra 500 IV every 12 hours. Patient Status: Patient is admitted under inpatient status with expected length of stay greater than 2 midnights due to severity of presenting symptoms, risk of adverse event, and complexity of treatment plan. Pain Evaluation: Adequate Pain Control GI Prophylaxis: H2 geetha VTE Prophylaxis: Sub-Q Heparin (Unfractionated) VTE Mechanical Devices: Intermittant Pneumatic CD Resuscitation Status: CPR: Attempt Resuscitation Time spent 25 minutes Pj Augustin MD Aug 25, 2016 07:47
--- NOTE | 2016-08-25 07:50 | PCM.PNMED ---
Subjective Date of Service Aug 25, 2016 Subjective PULMONARY/CRITICAL CARE PROGRESS NOTE Patient intubated and sedated so no ROS obtained. Overnight, the patient had an uneventful night. FiO2 able to be turned down to 0.4 from 0.5. Patient tolerated this well. Exam Vital Signs Vital Sign - Last Date Time Temp Pulse Resp B/P Pulse Ox O2 Delivery O2 Flow Rate FiO2 08/25/16 05:48 56 143/62 40 08/25/16 04:00 36.7 14 100 Mechanical Ventilator 08/23/16 17:48 3 Intake and Output 08/24/16 08/24/16 08/25/16 Cumulative From/Thru 15:00 23:00 07:00 08/23/16 17:34 - 08/25/16 06:00 Intake Total 1930 ml 2881 ml 97269 ml Output Total 525 ml 1000 ml 2125 ml Balance 1405 ml 1881 ml 8174 ml Intake Oral 0 ml 0 ml IV Total 1930 ml 2881 ml 31189 ml Output Urine Total 475 ml 1000 ml 2075 ml Stool Total 50 ml 50 ml Gastric Drainage Total 0 ml 0 ml # Bowel Movements 2 2 Exam General: No Acute Distress, Intubated and sedated in ICU; opening eyes to voice , following some commands Head: Normal Eyes: pupils equal, reactive, approx. 2mm in size Mouth: no oral thrush appreciated; OG tube in place Chest & Lungs: Clear to auscultation & percussion, No adventitious breath sounds Cardiovascular: Regular Rate/Rhythm, No Murmurs/Rubs/Gallops Pulses: Radial (present and equal bilaterally), Dorsalis Pedis (present and equal bilaterally) Abdomen: Non-tender, Non-distended, Soft, Normoactive bowel tones Genitourinary: Rodriguez Present Extremities: No cyanosis/clubbing/edma bilat, Right PICC line Ventilator settings: PRVC, FiO2 0.40, PEEP 5, rate 14, Vt 450. Peak 27, plateau 17. IVs and Medications Medications Reviewed: Medications were reviewed in detail Lab and Diagnostics Result Diagram: 08/25/1640 08/25/16 0540 Assessment & Plan Patient is a 66 year old female seizures, osteoarthritis, hypertension and presumed sleep apnea presenting with dyspnea. She presented to [facility] via EMS on 08/23/16 after family found her to be unresponsive. Patient improved minimally with BiPAP in the ED and then decompensated again. This decompensation required intubation and administration of vasopressors. Patient admitted to the ICU. Hospital day 2 1. Septic shock. - Criteria met: Leukocytosis (24), tachypnea (24), presumed respiratory source, SHAWNA (Cr 2.54), lactic acid 4.1, hypotension requiring norepinephrine. - Lactic acid normalized with appropriate fluid resuscitation. Continue IV LR at 100 ml/hr. - Procalcitonin quite elevated at 37. - Awaiting culture information. - Dr. Engle consulted and we appreciate his recommendations for antibiotics. Patient currently receiving ceftaroline and flagyl. - Maintaining MAP >65 without the use of norepinephrine. Norepi discontinued. - Continue to monitor CBC, procalcitonin. 2. Acute hypercapnic hypoxic respiratory failure. - Likely multifactorial in etiology including septic shock, pneumonia, and opiate use. - Fentanyl and propofol for sedation and analgesia. Will plan to lighten sedation today in preparation for SBT. - Patient appears to be tolerating current ventilator settings quite well. Will continue to monitor and change as appropriate. - Plan for SBT today in order to evaluate for extubation. - ABG to be ordered QAM and as needed to assess the patient's status. - Recommend physical therapy evaluation. 3. Right lower lobe pneumonia. - Strep pneumoniae Ag positive. - ID consultation as above in #1. Continue ceftaroline and flagyl (day 2). - Continue to monitor with CXR. 4. Acute kidney injury. Improved. - Baseline presumed normal. - Continue IV fluids with LR 100/hr. - Continue to monitor BMP. 5. Nutrition. - OG tube in place. Could consider evaluation for tube feeding. 6. Tobacco use disorder. - Will plan to discuss cessation strategies when patient is no longer sedated. - Will likely need outpatient following concerning this as well as further evaluation for chronic lung disease. GI Prophylaxis: H2 geetha VTE Prophylaxis: Sub-Q Heparin (Unfractionated) VTE Mechanical Devices: Intermittant Pneumatic CD Resuscitation Status: CPR: Attempt Resuscitation Attending Statement The patient was seen and examined together with Dr. Carvalho on 08/25/2016 and I agree with the history, exam and plan as outlined in the note above. Lulu Carvalho DO Aug 25, 2016 07:50 Lee Lester MD Sep 22, 2016 17:13
[2016-08-25] MEDS ORDERED: CEFTAROLINE IV SCH ×2 (08:30)
[2016-08-25] MEDS ORDERED: DEXTROSE IV SCH ×2 (08:30)
[2016-08-25] MEDS: metroNIDAZOLE Inj 500 MG in IV Premix 1 EACH IV SCH ×2 (08:34→21:52)
--- NOTE | 2016-08-25 08:40 | DRSVH ---
PROCEDURE: X-RAY CHEST ONE VIEW, PORTABLE ([id number]) INDICATIONS: 66-year-old intubated female. TECHNIQUE: One view of the chest was acquired. COMPARISON: [facility], CR, XR CHEST 1VW (PORTABLE), 08/24/2016, 3:06. [facility], CR, XR CHEST 1VW (PORTABLE), 08/23/2016, 20:58. [facility], CR, XR CHEST 1VW (PORT ABLE), 08/23/2016, 19:42. FINDINGS: Surgical changes and devices: Endotracheal tube is again noted, with tip now 2.0 cm above the malik. Nasogastric tube and right PICC are in expected positions. Lungs and pleura: There is trace basal left pleural effusion; no pneumothorax. There is persistent de nse retrocardiac opacity. Right lung base opacities have decreased. Mediastinum: Mediastinal contours appear normal. Heart size is normal. Bones and chest wall: No suspicious bony lesions. Overlying soft tissues appear unremarkable. IMPRESSION: 1. Endotracheal tube tip is 2 cm above the malik. 2. Persistent retrocardiac atelectasis or pneumonia. Right basilar atelectasis has decreased. 3. Persistent trace dependent left pleural effusion. Dictated by: Luis Manuel Moran M.D. on 08/25/2016 at 8:38 Approved by: Luis Manuel Moran M.D. on 08/25/2016 at 8:38
--- NOTE | 2016-08-25 09:25 | PROG NOTE ---
[address] [address] PROGRESS NOTE PATIENT: HARJIT HUFFMAN : 1950 MR#: [id number] ADMIT: 08/23/2016 JOB ID: [id number] DATE: 08/25/2016 INFECTIOUS DISEASE FOLLOW UP NOTE: REASON FOR FOLLOWUP: Pneumococcal pneumonia with ventilator dependent respiratory failure in a patient with a probable methadone induced aspiration. INTERVAL HISTORY: Over the past 24 hours, the patient has been relatively stable and she is now on a pressure support trial. At this point, the patient will awaken to voice and does seem to follow some simple commands though she is still quite sedated. This case was discussed in detail at the bedside with the ICU nurse. PHYSICAL EXAMINATION: Reveals a consistently afebrile woman whose current temperature 36.7, pulse 56. Respiratory rate is about 13-15 and she is on a pressure support trial 5/5, 40% FiO2. Blood pressure 151/64. No vasopressor agents. Eyes without conjunctivitis. Oral endotracheal tube, orogastric tube in good position. Lungs are clear anteriorly. We did not roll the patient over to examine her back. Cardiac tones without new murmur. Abdomen benign. No skin rash. No hives noted. Rodriguez catheter present. LABORATORIES: Include a white count which has dropped to 23,000 from 33,000 yesterday. Creatinine is 1.67. This represents an improvement from 2.54 on admission. Procalcitonin has been as high as 37 yesterday. Repeat has been requested for today. Urine pneumococcal antigen is positive. Urine Legionella antigen negative. Respiratory viral PCR panel negative. MRSA screen negative. Blood cultures negative. Chest radiograph done today shows retrocardiac infiltrate. IMPRESSION: We now have evidence of pneumococcal pneumonia given the positive urine antigen. It is worth noting the patient's endotracheal tube is draining copious amounts of rust-colored sputum which would be absolutely classic for a pneumococcal pneumonia process and that seems to be the unifying diagnosis here. Because of the possibility that the patient also aspirated during her unresponsive state, I would continue with some anaerobe coverage. RECOMMENDATIONS: 1. We can drop ceftaroline as there is no evidence for MRSA. 2. We will start ceftriaxone 2 g once a day with a plan to probably continue that for a total of a week or so. We will also continue with the Flagyl at this point. 3. ID will continue to follow this interesting patient with you.
--- NOTE | 2016-08-25 11:14 | NUR ---
NUTRITION FOLLOW-UP: Assess: 66 YO F admitted to CCU with respiratory failure, sepsis, and pneumonia. Pt required intubation in the ER. Pt has been NPO X 2 days. Received verbal order to start TF. Plan for SBT today. PMHX: Seizure, HTN, PNA, insomnia, depression, asthma, polysubstance overdose attempt, presumed CASSI. DIET: NPO. LABS: BUN 35, Benzene Worker 1.67, Ca 7.3 MEDICATIONS: Reviewed. Propofol 10 ml/hr providing 264 kcal/day, Insulin, Solu-medrol, Senna. GI: BMx2 / SKIN: no PU per WC WEIGHT: 87.1 kg, BMI 32.0 kg/m2, Admit wt: 87.1 kg, IBW: 56.8 kg (153%). ESTIMATED NEEDS: BMI/VENT Calories: 3542-1761 kcal/day (20-22 kcal/kg BW) Protein: 85-102 g/day (1.5-1.8 g/kg IBW) Fluids: 2175ml/day (25cc/kg) NUTRITION DIAGNOSIS: 1) Inadequate oral intake related to decreased ability to consume sufficient energy as evidenced by NPO/Vent status. --PERSISTS INTERVENTION: 1) Received verbal order to start TF today. Recommend start TF of Jevity 1.5@ 10ml/hr. If tolerated, advance by 10ml q 4 hrs until reach goal rate of 50ml/hr to provide 1650kcal (1915kcal w/propofol) and 70g pro (100% kcal and 82% pro needs). If no IVF, flush 165ml q 3 hrs to better meet fluid needs. 2) Recommend addition of 1 packet prosource BID to better meet protein needs once TF tolerated at goal 3) Adjust goal rate per daily propofol MONITOR/EVALUATE: NPO/Vent status, TF start/jose labs, POC, GI/nutrition status. Follow per high nutrition risk guidelines.
[2016-08-25] MEDS: cefTRIAXone Inj 2,000 MG in IV Premix 1 EACH IV SCH (12:54)
[2016-08-25] MEDS ORDERED: 0.9% Sodium Chloride 250 ML ONE (17:10)
--- NOTE | 2016-08-25 18:33 | NUR ---
PS trial.. was able to do 3 hour pressure support trial this am. When on sedation vacation pt nods appropriately to questions asked. Continues to have large amts tan/yellow thick secretions per ETT. Decision made to not extubate today. Started on tube feeds.. noted that N/G was pulled out some this am. Readvanced to 60 cm at the teeth and position verified prior to feed start. Worked with PT and was able to dangle, holding herself up and was able to stand at bedside briefly.
[2016-08-25] MEDS: Norepineph 8,000 mCg/250 mL NS 8,000 MCG in IV Premix 1 EACH IV SCH (19:31)
[2016-08-25] MEDS: Famotidine Inj 50 ML IV SCH (21:51)
[2016-08-26] VITALS (11 sets, daily range): BP systolic 116–172; BP diastolic 44–101; PULSE 59–102; RESP 12–19; O2SAT 91–100
[2016-08-26] MEDS: fentaNYL 2,500 mCg/250 mL 2,500 MCG in IV Premix 1 EACH IV SCH (00:31)
[2016-08-26 04:03] LABS: BASOPHILS % (AUTO) 0.1 % (0-3); EOSINOPHILS % (AUTO) 0.5 % (0-5); MONOCYTES % (AUTO) 4.3 % (4-12); Mean Corpuscular Hemoglobin 29.5 pg (27.0-35.0); Mean Corpuscular Volume 87.7 fL (81-100); NEUTROPHILS % (AUTO) 86.1 % (40-74); Platelet Count 167 bil/L (150-400)
[2016-08-26 04:27] LABS: Magnesium 1.9 mg/dL (1.6-2.6)
--- NOTE | 2016-08-26 04:37 | ABG ---
DateTimeAnalyzed 04:33:00 -_ pH ____7.380 - 7.350 7.450 pCO2 ___32.9__ -mmHg 35.0 45.0 pO2 122 -mmHg 69.0 116 HCO3- ___19.0__ -mmol/L 22.0 26.0 ABE ___-5.0__ -mmol/L -2.0 2.0 tHb ____8.2__ -g/dL O2Hb ___96.8__ -% COHb ____1.0__ -% MetHb ____1.0__ -% sO2 ___98.8__ -% FIO2 ___40.0__ -% PEEP ____5.0__ -cmH2O Vt __450.0__ -L Drawn By af - Date/Time Notified____ 04:37:00 -_ Spontaneous_RR ___14.0__ -b/min Oxygen Device 1 VENTILATOR - Notified By af - Notified Whom ____nurse - Age 60 -years B 766 -mmHg tO2 ___11.3__ -Vol% Pj test _Positive -
[2016-08-26] MEDS: Propofol Inj 1,000,000 MCG in IV Premix 1 EACH IV SCH ×3 (05:34→12:06)
[2016-08-26] MEDS: 0.9% Sodium Chloride 1,000 ML IV SCH (05:34)
--- NOTE | 2016-08-26 06:18 | NUR ---
Gastric Tube Gastric Tube had unadvanced itself despite being secured to the ET Tube. Day shift RN had this same difficulties. NG tube replaced and verified placement with aspiration and auscultation. Daily AM CXR completed post insertion. Tube feeds advanced towards goal and remains currently at 40ml/hour.
[2016-08-26] MEDS ORDERED: Potassium Phos (mMol) Inj 15 MMOL in Dextrose 5% 250 ML IV ONE (06:30)
[2016-08-26] MEDS ORDERED: 0.9% Sodium Chloride 250 ML ONE (07:45)
[2016-08-26] MEDS: metroNIDAZOLE Inj 500 MG in IV Premix 1 EACH IV SCH ×2 (08:33→20:59)
[2016-08-26] MEDS: Heparin 5,000 Unit/mL Inj SUBQ SCH ×2 (08:34→16:20)
--- NOTE | 2016-08-26 09:13 | DRSVH ---
PROCEDURE: X-RAY CHEST ONE VIEW, PORTABLE ([id number]) INDICATIONS: intubated pt; monitor tubes, lines TECHNIQUE: One view of the chest was acquired. COMPARISON: [facility], CR, XR CHEST 1VW (PORTABLE), 08/25/2016, 2:26. FINDINGS: Surgical changes and devices: Endotracheal tube is present at the level of the malik, unchanged. Anup ogastric tube is stable. Lungs and pleura: There is a persistent appearance of predominantly bibasilar opacities and increased pulmonary vascularity overall appearing mildly worse when compared to prior exam. Mediastinum: Mediastinal contours appear normal. Heart size is normal. Bones and chest wall: No suspicious bony lesions. Overlying soft tissues appear unremarkable. IMPRESSION: Mild interval worsening of bibasilar opacity suggestive of pneumonia and/or superimposed areas of atelectasis or edema. Dictated by: Desi Barker M.D. on 08/26/2016 at 9:11 Approved by: Desi Barker M.D. on 08/26/2016 at 9:11
[2016-08-26] MEDS: cefTRIAXone Inj 2,000 MG in IV Premix 1 EACH IV SCH (09:32)
--- NOTE | 2016-08-26 10:01 | PCM.PNMED ---
Subjective Date of Service Aug 26, 2016 Subjective PULMONARY/CRITICAL CARE PROGRESS NOTE Patient intubated and sedated so no ROS obtained. Overnight, tube feeding was advanced to 40. Patient tolerating that well. Otherwise uneventful. Exam Vital Signs Vital Sign - Last Date Time Temp Pulse Resp B/P Pulse Ox O2 Delivery O2 Flow Rate FiO2 08/26/16 08:00 Ventilator 08/26/16 08:00 36.9 69 14 144/60 100 40 08/23/16 17:48 3 Intake and Output 08/25/16 08/25/16 08/26/16 Cumulative From/Thru 15:00 23:00 07:00 08/23/16 17:34 - 08/26/16 06:13 Intake Total 2143 ml 2916 ml 49629 ml Output Total 1600 ml 2400 ml 6125 ml Balance 543 ml 516 ml 9233 ml Intake Oral 0 ml 0 ml IV Total 2143 ml 2568 ml 17278 ml Tube Feeding 228 ml 228 ml Tube Irrigant 120 ml 120 ml Output Urine Total 1600 ml 2400 ml 6075 ml Stool Total 50 ml Gastric Drainage Total 0 ml # Bowel Movements 3 1 6 Exam General: No Acute Distress, Intubated and sedated in ICU; opening eyes to voice , following commands Head: Normal Eyes: pupils equal, reactive, approx. 2mm in size Mouth: no oral thrush appreciated; OG tube in place Chest & Lungs: Clear to auscultation & percussion, No adventitious breath sounds Cardiovascular: Regular Rate/Rhythm, No Murmurs/Rubs/Gallops Pulses: Radial (present and equal bilaterally), Dorsalis Pedis (present and equal bilaterally) Abdomen: Non-tender, Non-distended, Soft, Normoactive bowel tones Genitourinary: Rodriguez Present Extremities: No cyanosis/clubbing/edma bilat, Right PICC line Ventilator settings: PRVC, FiO2 0.40, PEEP 5, rate 14, Vt 450. Peak 26, plateau 17. IVs and Medications Medications Reviewed: Medications were reviewed in detail Lab and Diagnostics Result Diagram: 08/26/16 0345 08/26/16 0345 Assessment & Plan Patient is a 66 year old female seizures, osteoarthritis, hypertension and presumed sleep apnea presenting with dyspnea. She presented to [facility] via EMS on 08/23/16 after family found her to be unresponsive. Patient improved minimally with BiPAP in the ED and then decompensated again. This decompensation required intubation and administration of vasopressors. Patient admitted to the ICU. Hospital day 3 1. Septic shock. - Criteria met: Leukocytosis (24), tachypnea (24), presumed respiratory source, SHAWNA (Cr 2.54), lactic acid 4.1, hypotension requiring norepinephrine. - Lactic acid normalized with appropriate fluid resuscitation. Continue IV NS at 75 ml/hr. - Procalcitonin quite elevated at 37. - Awaiting culture information. - Dr. Engle consulted and we appreciate his recommendations for antibiotics. Patient currently receiving ceftriaxone and flagyl (day 3 of all antibiotics). - Maintaining MAP >65 without the use of norepinephrine. Norepi discontinued. - Continue to monitor CBC, procalcitonin. 2. Acute hypercapnic hypoxic respiratory failure. - Likely multifactorial in etiology including septic shock, pneumonia, and opiate use. - Fentanyl and propofol for sedation and analgesia. Will plan to lighten sedation today for SBT. - Patient appears to be tolerating current ventilator settings quite well. Will continue to monitor and change as appropriate. - Successful SBT yesterday for 3 hours at 5/5. Plan for another today and will consider extubation. - ABG to be ordered QAM and as needed to assess the patient's status. - Continue physical therapy. 3. Right lower lobe pneumonia. - Strep pneumoniae Ag positive. - ID consultation as above in #1. Continue ceftriaxone and flagyl (day 3). - Continue to monitor with CXR. 4. Acute kidney injury. Improved. - Baseline presumed normal. - Continue IV fluids with NS 75/hr. - Continue to monitor BMP. 5. Nutrition. - Continue tube feeding and advance toward goal as tolerated. 6. Tobacco use disorder. - Will plan to discuss cessation strategies when patient is no longer sedated. - Will likely need outpatient following concerning this as well as further evaluation for chronic lung disease. GI Prophylaxis: H2 geetha VTE Prophylaxis: Sub-Q Heparin (Unfractionated) VTE Mechanical Devices: Intermittant Pneumatic CD Resuscitation Status: CPR: Attempt Resuscitation Attending Statement I have seen and examined this patient with the resident physician. Vital signs , labs, imaging have been reviewed. I agree with the assessment and plan above. Please refer to my separately dictated progress note for any modifications to above. Stella Hess M.D. Pulmonary and Critical Care medicine Pager [phone] Lulu Carvalho DO Aug 26, 2016 10:01 Stella Hess MD Aug 27, 2016 14:39
[2016-08-26] MEDS ORDERED: Furosemide 10 mg/mL 2 mL Inj IVPUSH ONE (10:25)
--- NOTE | 2016-08-26 10:59 | PROG NOTE ---
[address] [address] PROGRESS NOTE PATIENT: HARJIT HUFFMAN : 1950 MR#: [id number] ADMIT: 08/23/2016 JOB ID: [id number] DATE: 08/26/2016 PULMONARY CRITICAL CARE PROGRESS NOTE: The patient was seen and evaluated with resident physician, Lulu Carvalho. Please refer to the separate detailed note for additional information. The following is an addendum. IDENTIFYING DATA: The patient is a 66-year-old woman presenting to the hospital on August 23 with acute hypercarbic respiratory failure requiring mechanical ventilation, with Streptococcus pneumoniae pneumonia and severe sepsis. INTERVAL HISTORY: She is doing well on a spontaneous breathing trial right now. No other overnight events. REVIEW OF SYSTEMS: Unable to obtain. PHYSICAL EXAMINATION: Vital signs reviewed. Notable for FiO2 40%, PEEP 5 cm, afebrile. General: Intubated, sedated, opens her eyes, but does not follow commands to voice. Chest: Clear to auscultation bilaterally. LABORATORIES: Reviewed. WBC down to 15 from peak of 32. Chemistry notable for creatinine down to 1.0 from peak of 2.5 a few days ago. Procalcitonin 26 yesterday, down from 37. Cultures: No new data. Urine strep antigen positive. Chest x-ray reviewed and shows bibasilar infiltrates slightly worse than yesterday but overall improved compared to admission. ASSESSMENT AND RECOMMENDATIONS: 1. Acute hypercarbic respiratory failure. 2. Severe sepsis. 3. Streptococcus pneumoniae pneumonia. 4. Methadone use-non prescribed. 5. Acute kidney injury-improving. RECOMMENDATIONS: This 66-year-old woman presented with acute hypercarbic respiratory failure, severe sepsis and has urine antigen positive for Streptococcus pneumonia with pulmonary infiltrates. Her kidney function has improved and is close to normal currently. Her white count is also improving and procalcitonin has come down although it is quite far from normal. She is currently on antibiotics-ceftriaxone and Flagyl, per Dr. Engle due to concern for aspiration in addition to the Streptococcus. She is doing well on a spontaneous breathing trial, but she is quite a few kilos up since hospitalization-weight is up to 91 kg today from 87 on admission. So I would like to give her some IV Lasix and stop all her IV fluids. Post diuresis I think it would be okay to try to extubate her today. She is on appropriate DVT and GI prophylaxis. She is getting tube feeds. CRITICAL CARE TIME: 45 minutes.
--- NOTE | 2016-08-26 11:44 | PROG NOTE ---
[address] [address] PROGRESS NOTE PATIENT: HARJIT HUFFMAN : 1950 MR#: [id number] ADMIT: 08/23/2016 JOB ID: [id number] DATE: 08/26/2016 INFECTIOUS DISEASE FOLLOWUP NOTE: REASON FOR FOLLOWUP: Probable aspiration pneumonia with definite involvement of pneumococcal pneumonia as part of what is likely a polymicrobial process. INTERVAL HISTORY: Overnight, the patient has slowly improved on the ventilator and is now on approaching a point where she might be considered for extubation . She is more awake but unable to provide any useful history, though she does open her eyes and appears to be more aware. The patient's rust-colored sputum, which was so impressive yesterday, has decreased in volume and the color has changed to a more clear fluid rather than the very classic rust-colored material we saw yesterday. Overall, the nurses and respiratory therapist report the patient's breathing is steadily improving and weaning trials have commenced. PHYSICAL EXAMINATION: Reveals an intubated and somewhat sedated woman who opens her eyes when touched. Her temperature is 36.9, and she has been afebrile now for almost three days. Pulse 70, respiratory rate is ventilator dependent but about 18, blood pressure 149/66 (she is not on vasopressor agents). She is saturating fairly well on her pressure support trial 40% FiO2. Eyes without conjunctival abnormalities. Oral endotracheal tube present and without herpetic lesions or other abnormalities. Lungs with somewhat decreased breath sounds bilaterally but no focal rales or rhonchi are heard at all. Cardiac tones without new murmur. Abdomen benign. No skin rash. LABORATORIES: Include white count which has dropped from 33,000 to 16,000 over just two days. Hematocrit 26, platelet count 86, vena platelet count 167,000. Creatinine has dropped all the way to 1. Recall that she came in at 2.5, went to 2, 1.6 and now 1.0, a dramatic improvement. Procalcitonin was as high as 37. It is 26 today. Hep C antibody is negative. Urine legionella negative but urine pneumococcus is positive. Respiratory viral PCR panel negative. MRSA screen of the nose negative. IMAGING: Includes a chest x-ray done today which shows mild interval worsening of bibasilar infiltrates. These were reviewed on the view screen and I agree that especially the right lower lung appears to be a bit worse but overall, the clinical situation is certainly much improved. IMPRESSION: This patient appears to have had an aspiration event following oversedation with methadone. Her urine antigen is positive for pneumococcus and yesterday, sputum production with a great deal of rust-colored sputum was absolutely classic for pneumococcal disease. So, we are certain that this is at least part of the pathogen mix involved in this pneumonia. It is likely there are also anaerobes. RECOMMENDATIONS: 1. Will continue with ceftriaxone and Flagyl. 2. Will continue to closely follow white count, procalcitonin, her overall clinical course and anticipated duration of antibiotics of a minimum of seven days depending on her clinical course. Transition to oral therapy could be contemplated if the patient is extubated and doing well. Thank you very much, and we will keep following this patient with you.
--- NOTE | 2016-08-26 12:40 | ABG ---
DateTimeAnalyzed 12:36:00 -_ pH ____7.391 - 7.350 7.450 pCO2 ___34.8__ -mmHg 35.0 45.0 pO2 137 -mmHg 69.0 116 HCO3- ___20.6__ -mmol/L 22.0 26.0 ABE ___-3.3__ -mmol/L -2.0 2.0 tHb ____9.1__ -g/dL O2Hb ___97.2__ -% COHb ____0.9__ -% MetHb ____1.0__ -% sO2 ___99.1__ -% FIO2 ___40.0__ -% Pressure_Support ____5.0__ -cmH2O PEEP ____5.0__ -cmH2O Vt __480.0__ -L Drawn By NB - Date/Time Notified____ 12:40:00 -_ Spontaneous_RR ___18.0__ -b/min Oxygen Device 1 VENTILATOR - Notified By nb - Notified Whom ___Parimi - Age 60 -years B 764 -mmHg tO2 ___12.7__ -Vol% Pj test N/A -
--- NOTE | 2016-08-26 13:36 | NUR ---
Social Work: Initial Assessment D: Per EMR review, pt is a 66 year old female admitted for hypercapnia, respiratory failure, aspiration and pneumonia. Pt is Medicare with [facility] supplement; pt does not have LTC or VA benefits. PCP is not listed and son does not recall. NOK is Jt Kaur, Son, . Advanced directives not completed- information provided to pt's son by RN and CORPORATE SERVICES MANAGER. Readmit score is moderate, 4/8. Pt discussed in am rounds. Pt remains vented and sedated with possible extubation today. Pt currently on Tube Feeds. Per EMR review, pt's son had disclosed possible substance use/abuse of prescription narcotics and/or methadone. Pt's UDS positive for methadone which is not prescribed to her. t/c to pt's son to complete Initial Assessment. CORPORATE SERVICES MANAGER role explained. See initial assessment. Son states pt lives in [place] with her daughter. Pt uses a power chair at baseline and is I with transfers. Pt also occasionally uses a walker but is mostly sedentary. Pt has never had home health or in-home caregiving. Pt has no history with skilled rehab. Pt does not drive. Son reiterates concern for possible narcotic abuse but states that to his knowledge the pt has never been to treatment. A: Pt who [place]; I with transfers P: Evolving; CORPORATE SERVICES MANAGER to complete CD assessment with pt once medically stable and follow for dcp needs Linda Martinez, Addendum: 08/26/16 at 1345 by LINDA CHU SS Amended: Links added.
--- NOTE | 2016-08-26 13:39 | NUR ---
NUTRITION FOLLOW-UP: Assess: 66 YO F admitted to CCU with respiratory failure, sepsis, and pneumonia. Pt required intubation in the ER. Pt being considered for extubation in the near future. Pt tolerating TF @ 40 ml/hr and will be advanced to goal today. PMHX: Seizure, HTN, PNA, insomnia, depression, asthma, polysubstance overdose attempt, presumed CASSI. DIET: NPO. NUTRITION SUPPORT: Jevity 1.5 @ 50 ml/hr to provide 1650kcal (1915kcal w/propofol) and 70g pro (100% kcal and 82% pro needs). If no IVF, flush 165ml q 3 hrs to better meet fluid needs. LABS: K 3.2, Ca 7.6, Phos 2.0 MEDICATIONS: Reviewed. Propofol ~10 ml/hr providing 264 kcal/day, Fentanyl GI: BMx1 1/5 SKIN: no PU per WC WEIGHT: 87.1 kg, BMI 32.0 kg/m2, Admit wt: 87.1 kg, IBW: 56.8 kg (153%). ESTIMATED NEEDS: BMI/VENT Calories: 6789-8620 kcal/day (20-22 kcal/kg BW) Protein: 85-102 g/day (1.5-1.8 g/kg IBW) Fluids: 2175ml/day (25cc/kg) NUTRITION DIAGNOSIS: 1) Inadequate oral intake related to decreased ability to consume sufficient energy as evidenced by NPO/Vent status. --PERSISTS INTERVENTION: 1) Will add 1 packet of prosource BID to provide a total of 92 g/d protein and better meet pts est protein needs. 2) Adjust goal rate based on daily propofol rate. MONITOR/EVALUATE: NPO/Vent status, TF, labs, POC, GI/nutrition status. Follow per high nutrition risk guidelines.
--- NOTE | 2016-08-26 13:46 | NUR ---
ALONSO Signed Verbal Consent from pt's son
--- NOTE | 2016-08-26 14:03 | PCM.PNMED ---
Subjective Date of Service Aug 26, 2016 Subjective Patient is intubated and sedated. She can open her eyes. She follows simple commands. ROS and subjective not obtainable Exam Vital Signs Vital Sign - Last Date Time Temp Pulse Resp B/P Pulse Ox O2 Delivery O2 Flow Rate FiO2 08/26/16 12:00 Ventilator 08/26/16 12:00 37.1 82 14 134/58 100 40 08/23/16 17:48 3 Intake and Output 08/25/16 08/25/16 08/26/16 Cumulative From/Thru 15:00 23:00 07:00 08/23/16 17:34 - 08/26/16 06:13 Intake Total 2143 ml 2916 ml 09502 ml Output Total 1600 ml 2400 ml 6125 ml Balance 543 ml 516 ml 9233 ml Intake Oral 0 ml 0 ml IV Total 2143 ml 2568 ml 23245 ml Tube Feeding 228 ml 228 ml Tube Irrigant 120 ml 120 ml Output Urine Total 1600 ml 2400 ml 6075 ml Stool Total 50 ml Gastric Drainage Total 0 ml # Bowel Movements 3 1 6 Exam She is intubated. Pupils are symmetric NG days Neck ears normal Oropharynx, endotracheal tube in place Neck supple Lungs are clear without rhonchi. Minimal wheezing. Heart is regular without murmur gallop or rub Abdomen is soft. Extremities are normal for 1+ edema with good pedal pulses. Skin is free of rash or lesion IVs and Medications Medications Reviewed: Medications were reviewed in detail Lab and Diagnostics Result Diagram: 08/26/16 0345 08/26/16 1250 Assessment & Plan Patient is a 66 year old female seizures, osteoarthritis, hypertension and presumed sleep apnea presenting with dyspnea. She presented to [facility] via EMS on 08/23/16 after family found her to be unresponsive. Patient improved minimally with BiPAP in the ED and then decompensated again. This decompensation required intubation and administration of vasopressors. Patient admitted to the ICU. Hospital day 3 1. Septic shock. POA. This secondary to pneumococcal pneumonia. This is improved. - Criteria met: Leukocytosis (24), tachypnea (24), presumed respiratory source, SHAWNA (Cr 2.54), lactic acid 4.1, hypotension requiring norepinephrine. - Lactic acid normalized with appropriate fluid resuscitation. Continue IV NS at 75 ml/hr. - Procalcitonin quite elevated at 37. 2. Acute hypercapnic hypoxic respiratory failure. POA. The patient is intubated and mechanically ventilated. She had a lot of secretions yesterday prohibiting extubation. Clear secretions are better. She has been on a spontaneous breathing trial for an hour is doing well with 5 of pressure support over her PEEP of 5. No tachycardia. The patient is mildly fluid overloaded as he may be diuresis morning but we expect extubation this afternoon.. 3. Pneumococcal pneumonia, right upper lobe. POA. Improving. -Continue ceftriaxone and flagyl, per infectious disease.. 4. Acute kidney injury. Resolved 5. Nutrition. - Continue tube feeding and advance toward goal as tolerated. 6. Tobacco use disorder. - Will plan to discuss cessation strategies when patient is no longer sedated. - Will likely need outpatient following concerning this as well as further evaluation for chronic lung disease. Pain Evaluation: Adequate Pain Control GI Prophylaxis: H2 geetha VTE Prophylaxis: Sub-Q Heparin (Unfractionated) VTE Mechanical Devices: Intermittant Pneumatic CD Resuscitation Status: CPR: Attempt Resuscitation Time spent 30 minute Pj Augustin MD Aug 26, 2016 14:03
[2016-08-26] MEDS ORDERED: POTASSIUM PHOS IV ONE (14:25)
[2016-08-26] MEDS ORDERED: DEXTROSE 5% IV ONE (14:25)
[2016-08-26] MEDS ORDERED: Albuterol 2.5 mg/3 mL Inhalation Solution NEB PRN (15:50)
[2016-08-26] MEDS: Chlorhexidine 0.12% 15 mL Oral Solution MT SCH ×2 (16:20→19:09)
[2016-08-26] MEDS: Acetaminophen IV 1,000 MG in IV Premix 1 EACH IV PRN (16:21)
[2016-08-26] MEDS ORDERED: MeTOProlol 1 mg/mL 5 mL Inj IVPUSH ONE (16:35)
[2016-08-26] MEDS ORDERED: Potassium Chloride 20 mEq/15 mL 15mL Oral Soln PO ONE (16:40)
[2016-08-26] MEDS ORDERED: KCl 40 mEq/100 mL (CENTRAL) 40 MEQ in IV Premix 1 EACH IV ONE (16:40)
--- NOTE | 2016-08-26 18:30 | NUR ---
Extubation/Cardiac.. Was able to do a pressure support trial throughout the am and was able to be extubated at 1330. Has been on a 4 liter nasal cannula and was stable until 1615, pt started to have increasing HR with PVC, and intermittent afib with HR to 150. Noted to have some audible stridor and apnic spells, pt would have a dazed look, but would awaken to loud voice and was able to answer questions appropriately. Dr Carvalho and Jimena summoned to the bedside to assess. Pt had a swallow eval done and was given potassium, and metoprolol. Continues to have large diuresis totaling 4950 cc for the shift. Dr Hess notified of followup potassium.
[2016-08-26] MEDS: Famotidine Inj 50 ML IV SCH (20:58)
[2016-08-26 21:40] LABS: Phosphorus 4.6 mg/dL (2.5-4.9)
--- NOTE | 2016-08-26 23:50 | NUR ---
Breathing/O2 Pt SpO2 high 90s on 3L NC. Does not appear to be in respiratory distress, but her breathing is off. Appears to be using accessory muscles upon first glance with RR high 20s, but when auscultated, RR is actually slower 10-14. RT tried to encourage pt to use acapella and also noted breathing pattern. She recommended BIPAP for probably CASSI, or cool aerosol for sputum breakdown. MD notified. Attempted to place pt on BIPAP, but she took it off within 3 minutes and did not tolerate well at all. MD was at bedside and evaluated pt. Recommendations to continue to monitor pt closely. Care ongoing
[2016-08-27] VITALS (11 sets, daily range): BP systolic 136–184; BP diastolic 62–102; PULSE 78–98; RESP 14–20; O2SAT 96–100
[2016-08-27] MEDS: Chlorhexidine 0.12% 15 mL Oral Solution MT SCH ×4 (00:30→12:30)
[2016-08-27] MEDS: Heparin 5,000 Unit/mL Inj SUBQ SCH ×3 (00:49→16:38)
--- NOTE | 2016-08-27 02:29 | NUR ---
Restlessness/Pain Pt restless and reports a generalized pain but couldn't put a number to pain. BP steadily increasing. MD notified. Received orders for one time dose of IV Toradol and Ativan. Pt BP stabilized and she appeared comfortable while resting. Will continue to monitor.
[2016-08-27 05:44] LABS: BASOPHILS % (AUTO) 0.2 % (0-3); EOSINOPHILS % (AUTO) 0.1 % (0-5); MONOCYTES % (AUTO) 10.1 % (4-12); Mean Corpuscular Hemoglobin 28.6 pg (27.0-35.0); Mean Corpuscular Volume 88.3 fL (81-100); NEUTROPHILS % (AUTO) 79.2 % (40-74); Platelet Count 176 bil/L (150-400)
[2016-08-27 05:55] LABS: Magnesium 1.6 mg/dL (1.6-2.6); Phosphorus 2.4 mg/dL (2.5-4.9)
[2016-08-27] MEDS ORDERED: 0.9% Sodium Chloride 250 ML ONE ×3 (06:29→09:05)
[2016-08-27] MEDS ORDERED: DEXTROSE 5% IV ONE (06:30)
[2016-08-27] MEDS ORDERED: POTASSIUM PHOS IV ONE (06:30)
[2016-08-27] MEDS ORDERED: Mag Sulf 4 Gm/100 mL IV Premix (Mag < 1.6 & Creat < 2) IV ONE (06:55)
--- NOTE | 2016-08-27 07:24 | PCM.PNMED ---
Subjective Date of Service Aug 27, 2016 Subjective Patient is extubated. She is breathing comfortably with rate of 24. She is somnolent but does open her eyes. She is not talking this morning. She is on room air with saturations in the mitral mid 90s. Exam Vital Signs Vital Sign - Last Date Time Temp Pulse Resp B/P Pulse Ox O2 Delivery O2 Flow Rate FiO2 08/27/16 05:04 36.9 94 20 136/62 96 Room Air 08/27/16 01:01 4.00 08/26/16 22:00 35 Intake and Output 08/26/16 08/26/16 08/27/16 Cumulative From/Thru 15:00 23:00 07:00 08/23/16 17:34 - 08/27/16 06:49 Intake Total 1835 ml 485 ml 05276 ml Output Total 4950 ml 4050 ml 79553 ml Balance -3115 ml -3565 ml 2553 ml Intake Oral 0 ml IV Total 1364 ml 485 ml 97226 ml Tube Feeding 326 ml 554 ml Tube Irrigant 145 ml 265 ml Output Urine Total 4950 ml 4050 ml 88234 ml Stool Total 50 ml Gastric Drainage Total 0 ml # Bowel Movements 4 1 11 Exam Patient is arousable. No distress. Normal skull Anicteric sclerae. Supple neck, normal JVP. Lungs are clear with normal effort Heart is regular without murmur Abdomen is soft nontender Extremities are free of edema. IVs and Medications Medications Reviewed: Medications were reviewed in detail Lab and Diagnostics Result Diagram: 08/27/16 0435 08/27/16 0435 Assessment & Plan Patient is a 66 year old female seizures, osteoarthritis, hypertension and presumed sleep apnea presenting with dyspnea. She presented to [facility] via EMS on 08/23/16 after family found her to be unresponsive. Patient improved minimally with BiPAP in the ED and then decompensated again. This decompensation required intubation and administration of vasopressors. Patient admitted to the ICU. Hospital day 3 1. Septic shock. POA. This secondary to pneumococcal pneumonia. This is improved. - Criteria met: Leukocytosis (24), tachypnea (24), presumed respiratory source, SHAWNA (Cr 2.54), lactic acid 4.1, hypotension requiring norepinephrine. - Lactic acid normalized with appropriate fluid resuscitation. Continue IV NS at 75 ml/hr. - Procalcitonin quite elevated at 37. Patient is improved at this point. 2. Acute hypercapnic hypoxic respiratory failure. POA. She was extubated yesterday and is doing well actually on room air today. Review of microbiologic data indicates only pneumococcal antigen positive and otherwise negative cultures. She is still on Flagyl in addition to ceftriaxone which will be stopped today. 3. Pneumococcal pneumonia, right upper lobe. POA. Improving. -Continue ceftriaxone and flagyl, per infectious disease. We will discuss stopping Flagyl with ID today. 4. Acute kidney injury. Resolved 5. Nutrition. -We will encourage increased by mouth intake and ambulation. 6. Tobacco use disorder. - Will plan to discuss cessation strategies when patient is no longer sedated. - Will likely need outpatient following concerning this as well as further evaluation for chronic lung disease. 7. Hypernatremia. Free water deficit. D5W at 50 for 1 L and follow closely. Pain Evaluation: Adequate Pain Control GI Prophylaxis: H2 geetha VTE Prophylaxis: Sub-Q Heparin (Unfractionated) VTE Mechanical Devices: Intermittant Pneumatic CD Resuscitation Status: CPR: Attempt Resuscitation Time spent 20 minutes Pj Augustin MD Aug 27, 2016 07:24
[2016-08-27] MEDS: Dextrose 5% 1,000 ML IV SCH (08:28)
[2016-08-27] MEDS: metroNIDAZOLE Inj 500 MG in IV Premix 1 EACH IV SCH (09:14)
--- NOTE | 2016-08-27 11:11 | PROG NOTE ---
[address] [address] PROGRESS NOTE PATIENT: HARJIT HUFFMAN : 1950 MR#: [id number] ADMIT: 08/23/2016 JOB ID: [id number] DATE: 08/27/2016 PULMONARY PROGRESS NOTE: The patient is a 66-year-old woman presenting on August 23 with acute hypercarbic respiratory failure requiring mechanical ventilation and pneumococcal pneumonia with severe sepsis. INTERVAL HISTORY: She was extubated yesterday and has been doing well overnight, although refusing many therapies. She had some desaturations overnight suggesting potential sleep apnea, undiagnosed, but refused to wear CPAP/BiPAP. She had an episode of tachycardia yesterday afternoon with heart rates in the 120s-150s which subsided with IV and p.o. metoprolol. She has metoprolol on her home med list but it is not clear if she takes this. REVIEW OF SYSTEMS: She says she feels bad, aching all over but denies any chest pain or abdominal pain. PHYSICAL EXAMINATION: Vital signs reviewed. Temp 36.9, pulse 94, respirations 20, BP 136/62, sats 99% on room air. General: She seems lethargic, answering questions but not always appropriately. Chest is clear to auscultation. LABORATORIES: Reviewed. WBC 14.8, down from 15.8. Hemoglobin 8.3, platelets 176. Chemistry shows sodium is up to 149, otherwise normal. Procalcitonin has not been rechecked, and I think we should check this. ASSESSMENT AND RECOMMENDATIONS: 1. Acute hypoxic respiratory failure -- intubated August 23, extubated August 26. 2. Severe sepsis -- resolved. 3. Pneumococcal pneumonia. 4. Substance abuse -- methadone. 5. Acute kidney injury -- improved. 6. Tachycardia -- ?supraventricular tachycardia. This 66-year-old woman presented with acute hypercarbic respiratory failure, severe sepsis and pneumococcal pneumonia with pulmonary infiltrates. Her urine tox screen initially was positive for methadone, which is a nonprescription drug, that she apparently had used for arthritis. She is slowly improving and was extubated yesterday. Doing well from a respiratory standpoint, currently on room air. She had an episode of tachycardia that subsided with beta geetha, so will discontinue that. Her home med list also included lisinopril but it is not clear if she is taking this. If blood pressure continues to be an issue, this can probably be restarted. She had excellent diuresis yesterday and put out about 10 L of urine in the last 24 hours. Her weight is almost back to her home baseline and electrolytes have been corrected. I think we can hold off on additional diuresis but this can be readdressed if needed. No other active pulmonary issues at this point, so Pulmonary service will sign off but please call if needed, for any concerns or questions.
[2016-08-27] MEDS: cefTRIAXone Inj 2,000 MG in IV Premix 1 EACH IV SCH (11:24)
--- NOTE | 2016-08-27 11:45 | NUR ---
Mentation.. Ongoing restlessness this am, but currently is more restful and states she is comfortable. Is oriented to name and year, but answers that she is at [facility] in [facility]. Continues to have altered breathing pattern noting pt will hold breath with respirations and slight audible stridor and hoarness of voice noted. Is sitting in high qiu's position and jose activity well. Is taking crushed meds without any cough or choking noted.
[2016-08-27] MEDS ORDERED: Ketamine 10 mg/mL 20 mL Inj ONE (12:24)
[2016-08-27] MEDS ORDERED: Succinylcholine Chloride 20 mg/mL 5 mL Inj ONE (12:24)
[2016-08-27 15:07] LABS: Magnesium 2.5 mg/dL (1.6-2.6); Phosphorus 3.1 mg/dL (2.5-4.9)
[2016-08-27] MEDS ORDERED: levETIRAcetam 500 mg Tablet PO SCH (15:30)
[2016-08-27] MEDS: Lisinopril 40 Tablet PO SCH (16:25)
[2016-08-27] MEDS ORDERED: KCl 40 mEq/100 mL Premix (K 3 - 3.7 & Creat < 2) IV ONE (16:30)
[2016-08-27] MEDS: Acetaminophen IV 1,000 MG in IV Premix 1 EACH IV PRN ×2 (20:28→23:14)
[2016-08-27] MEDS: levETIRAcetam 500 mg Tablet PO SCH (20:36)
[2016-08-27] MEDS: Famotidine Inj 50 ML IV SCH (23:01)
[2016-08-28] VITALS (9 sets, daily range): BP systolic 149–192; BP diastolic 81–105; PULSE 76–96; RESP 16–20; O2SAT 98–100
[2016-08-28] MEDS: Heparin 5,000 Unit/mL Inj SUBQ SCH ×3 (01:08→17:29)
[2016-08-28] MEDS ORDERED: KCl 40 mEq/100 mL Premix (K 3 - 3.7 & Creat < 2) IV ONE (03:25)
[2016-08-28] MEDS: Dextrose 5% 1,000 ML IV SCH (03:55)
[2016-08-28] MEDS: Acetaminophen IV 1,000 MG in IV Premix 1 EACH IV PRN (04:27)
--- NOTE | 2016-08-28 04:45 | NUR ---
Pain/Restless/Tele C/O generalized pain 05/31, gave IV tylenol 100 Mg x2 prn pain, agitation , Seroquel 25 MG PO PRN, HS sleep . was calm most of the shift. K= 3.4 , after K-rider, On K protocol , gave 40 Meq IV K. Family in room assisting w ADL. Tele SR-70 Room Air. NS @ tko, D5W @ 50 , Rodriguez draining pale yellow urine to gravity .
[2016-08-28] MEDS ORDERED: 0.9% Sodium Chloride 500 ML ONE (09:23)
[2016-08-28] MEDS: Lisinopril 40 Tablet PO SCH (09:42)
[2016-08-28] MEDS: levETIRAcetam 500 mg Tablet PO SCH ×2 (09:42→20:04)
[2016-08-28] MEDS: cefTRIAXone Inj 2,000 MG in IV Premix 1 EACH IV SCH (09:45)
[2016-08-28 09:46] LABS: Mean Corpuscular Hemoglobin 28.6 pg (27.0-35.0); Mean Corpuscular Volume 88.6 fL (81-100)
--- NOTE | 2016-08-28 12:19 | NUR ---
NUTRITION FOLLOW-UP: Assess: 66 YO F admitted to CCU with respiratory failure, sepsis, and pneumococcal pneumonia. Pt required intubation in the ER. She was extubated yesterday, transferred to [facility] and is doing well, with the exception of her nutrition. Her diet has been unable to be advanced beyond stimulation, and there is no PO intake recorded. Code status: full. PMHX: Seizure disorder, HTN, PNA, insomnia, depression, asthma, polysubstance overdose attempt, presumed CASSI. DIET: Stimulation with no PO recorded. NUTRITION SUPPORT DISCONTINUED: Jevity 1.5 @ 50 ml/hr to provide 1650kcal (1915kcal w/propofol) and 70g pro (100% kcal and 82% pro needs). LABS: Reviewed. Glu 117, Ca 8.4, Alb 2.7., MEDICATIONS: Reviewed. Seroquel, Lopressor, Keppra. GI: BM x 1 today. SKIN: Per Circus Agent, there are no pressure ulcers at this time. WEIGHT: 85.5 kg, BMI 31.0 kg/m2, Admit wt: 87.1 kg, IBW: 56.8 kg (153%). ESTIMATED NEEDS: (BMI): Calories: 0791-8487 kcal/day (20-22 kcal/kg BW) Protein: 85-102 g/day (1.5-1.8 g/kg IBW) Fluids: 2175ml/day (25cc/kg) NUTRITION DIAGNOSIS: 1) Inadequate oral intake related to decreased ability to consume sufficient energy as evidenced by NPO/Vent status - SLIGHTLY IMPROVED WITH EXTUBATION AND DIET ADV. TO STIMULATION. INTERVENTION: 1) In the event diet unable to be advanced over the weekend, recommend restart enteral feeding per previous recommendations. MONITOR/EVALUATE: Diet advance / tolerance, PO intake, labs, POC, GI/nutrition status. Follow per high nutrition risk guidelines.
--- NOTE | 2016-08-28 13:21 | PCM.PNMED ---
Subjective Date of Service Aug 28, 2016 Subjective She is doing better today. No cough or dyspnea. She is on room air. She is still somnolent. She is somewhat debilitated and weak and did poorly in physical therapy. She denies chest pain. No nausea vomiting or abdominal pain Exam Vital Signs Vital Sign - Last Date Time Temp Pulse Resp B/P Pulse Ox O2 Delivery O2 Flow Rate FiO2 08/28/16 12:21 36.7 76 16 174/101 99 Room Air 08/27/16 01:01 4.00 08/26/16 22:00 35 Intake and Output 08/27/16 08/27/16 08/28/16 Cumulative From/Thru 15:00 23:00 07:00 08/23/16 17:34 - 08/28/16 06:01 Intake Total 1382 ml 1216 ml 68067 ml Output Total 1800 ml 1900 ml 05841 ml Balance -418 ml -684 ml 1451 ml Intake Oral 318 ml 200 ml 518 ml IV Total 1064 ml 1016 ml 96786 ml Tube Feeding 554 ml Tube Irrigant 265 ml Output Urine Total 1800 ml 1900 ml 15172 ml Stool Total 50 ml Gastric Drainage Total 0 ml # Bowel Movements 1 12 Exam Alert oriented 3, lethargic. Flat affect. Normal skull Anicteric sclera. Neck is supple Lungs are clear with normal effort and rate. Heart is regular without murmur gallop or rub. Abdomen is soft nondistended. Extremities are free of edema. Good pedal pulses. Skin is free of rash or lesions IVs and Medications Medications Reviewed: Medications were reviewed in detail Lab and Diagnostics Result Diagram: 08/28/1643 08/28/16 0943 Assessment & Plan Patient is a 66 year old female seizures, osteoarthritis, hypertension and presumed sleep apnea presenting with dyspnea. She presented to [facility] via EMS on 08/23/16 after family found her to be unresponsive. Patient improved minimally with BiPAP in the ED and then decompensated again. This decompensation required intubation and administration of vasopressors. Patient admitted to the ICU. Hospital day 3 1. Septic shock. POA. This secondary to pneumococcal pneumonia. This is resolved. - Criteria met: Leukocytosis (24), tachypnea (24), presumed respiratory source, SHAWNA (Cr 2.54), lactic acid 4.1, hypotension requiring norepinephrine. - Lactic acid normalized with appropriate fluid resuscitation. Continue IV NS at 75 ml/hr. - Procalcitonin quite elevated at 37. Patient is improved at this point. 2. Acute hypercapnic hypoxic respiratory failure. POA. She was extubated yesterday and is doing well actually on room air today. Review of microbiologic data indicates only pneumococcal antigen positive and otherwise negative cultures. She is still on Flagyl in addition to ceftriaxone which will be stopped today. She is doing well clinically and now is on room air. 3. Pneumococcal pneumonia, right upper lobe. POA. Improving. -Continue ceftriaxone and flagyl, per infectious disease. Discontinue Flagyl yesterday. 4. Acute kidney injury. Resolved 5. Nutrition. -We will encourage increased by mouth intake and ambulation. 6. Tobacco use disorder. - Will plan to discuss cessation strategies when patient is no longer sedated. - Will likely need outpatient following concerning this as well as further evaluation for chronic lung disease. 7. Hypernatremia. Free water deficit. D5W at 50 for 1 L and follow closely. We will recheck labs today. Discharge planning will work with the family to decide whether or not home would be safe. Physical therapy has recommended senior living facility but she is resisting that. Pain Evaluation: Adequate Pain Control GI Prophylaxis: H2 geetha VTE Prophylaxis: Sub-Q Heparin (Unfractionated) VTE Mechanical Devices: Intermittant Pneumatic CD Resuscitation Status: CPR: Attempt Resuscitation Time spent 30 minutes Pj Augustin MD Aug 28, 2016 13:21
--- NOTE | 2016-08-28 14:15 | NUR ---
Social Work Continued Discharge Planning D: EMR reviewed. Pt is on day 5 of hospitalization for Dyspnea, Respiratopry/Failure Elevated Torp. Pt lives in [place] with her dtr who provided caregiving for Pt. ESTEFANIA met with Pt at bedside, SW role explained. SW attempted to complete CD assessment with Pt at bedside. Pt adamantly denies using any illicit/prescribed medications. Pt occasionally smoke cigarettes and denies ETOH use. SW discussed PT recommendation of SNF. Pt refusing. Pt continues to recommend SNF though pending clinical course may only require HH at discharge. SW returned to room and spoke with Pt and Pt's dtr. Pt's dtr denies any concern of illicit drug use. Pt's dtr reports Pt is in constant pain and only uses the methadone for pain control. Pt's dtr believes Pt needs a referral to a Pain Clinic. SW encourage Pt and Pt's dtr to work with [facility] to get the referral. Pt is agreeable to Home Health RN/PT/OT/HOSPITALITY AMBASSADOR at discharge. SW provided Choice, no preference. SW provided referral to Richard Valenzuela at [facility]. Access Given. F2F is in folder, needs signature. Pt's daughter reports several siblings live/stay with mother. Pt does have a walker and a bedside commode. SW will continue to follow. A: Pt who will benefit from continued therapies P: Pt is agreeable to Home Health RN/PT/OT/HOSPITALITY AMBASSADOR at discharge. SW provided Choice, no preference. SW provided referral to Richard Valenzuela at [facility]. Access Given. F2F is in folder, needs signature. Pt's daughter reports several siblings live/stay with mother. Pt does have a walker and a bedside commode. SW will continue to follow. MARCELLUS Morillo
--- NOTE | 2016-08-28 18:17 | NUR ---
Pain/Activity/Nuero Patient a/o x 2-3, but forgetful and impulsive, bed alarm on for safety and family staying this evening. Patient wanting to go home several times this shift, states "The doctor says i can go home." Spoke with Dr Augustin and family and plan for patient to stay one more night. Rodriguez cath removed at 1030, patient amb to bathroom indep with sba for IV pole, steady on feet. Patient had multiple loose stools this shift, per daughter that is patient baseline. Patient c/o generalized pain, po Tylenol given with moderate effect. Patient c/o hunger, speech therapy eval done and patient remains on stim diet. Will cont poc.
[2016-08-28] MEDS: Famotidine Inj 50 ML IV SCH (20:04)
[2016-08-29] MEDS: Heparin 5,000 Unit/mL Inj SUBQ SCH ×2 (00:28→08:40)
[2016-08-29 03:16] VITALS: PULSE 91
--- NOTE | 2016-08-29 03:16 | NUR ---
Restless/Pain/ Restless, C/O constant pain , gave 25 Mg PO Seroquel and 4 Mg PO melatonin , Pt seems to be unsatisfied unles sleeping. Family member was agitated about her auntie's pain not being adequately managed, RN explained to her the care plan, this family member became vocal and agitated, , drawing the attention of the floor staff, . Family was told that if she didn't conduct herself she would be removed by security. was reminded of hospital policy of 2 visitors per room over age of 18. Tele sr 80';s Room air, Voiding pale yellow urine , thick soft stool. Pt would benefit from pain management counselling as pain and insomnia are her primary complaints , she seeks relief with medication.
[2016-08-29 03:19] VITALS: BP 147/80; PULSE 73; RESP 16; O2SAT 98
[2016-08-29 08:22] VITALS: BP 175/99; PULSE 87; RESP 16; O2SAT 99
[2016-08-29] MEDS: cefTRIAXone Inj 2,000 MG in IV Premix 1 EACH IV SCH (08:36)
[2016-08-29] MEDS: Lisinopril 40 Tablet PO SCH (08:39)
[2016-08-29] MEDS: levETIRAcetam 500 mg Tablet PO SCH (08:39)
[2016-08-29 09:57] VITALS: PULSE 72
--- NOTE | 2016-08-29 10:25 | PCM.DIMED ---
Discharge Instructions Date of Service Aug 29, 2016 Dates of Hospitalization Aug 23, 2016 at 19:10 Discharge Diagnosis Discharge Diagnosis 1. Septic shock. 2. Acute hypercapnic hypoxic respiratory failure. 3. Pneumococcal pneumonia, right upper lobe. 4. Acute kidney injury. Resolved 5. Tobacco use disorder. Diet No restrictions Activity Limited until seen by PCP Call your provider Fever or Chills, Shortness of breath Patient Instructions Follow-up with PCP in: 1 week Pj Augustin MD Aug 29, 2016 10:25
[2016-08-29] MEDS ORDERED: CEFD300C3 PO (10:32)
--- NOTE | 2016-08-29 11:11 | NUR ---
Social Work Discharge D: EMR Reviewed. Pt is on day 6 of hospitalization and is medically ready for discharge. CD assessment attempted 08/28/16. Pt denies CD issues, Pt's family reports Pt uses Methadone for pain. Unclear where Pt gets Methadone. SW offered HH services for Pt as Pt declining SNF. Pt's choiced, No preference. Referral made to Richard Valenzuela with [facility]. F2F signed, Access given. ESTEFANIA updated Richard Valenzuela that Pt discharging home today with family to provide support at discharge. Pt discharging with RN/PT/OT/FOLDING MACHINE TENDER. A: Pt with strong family support, will benefit from HH P: Pt is medically stable and discharging home today with family to provide support at discharge. Pt to open with [facility] RN/PT/OT/FOLDING MACHINE TENDER. Richard Valenzuela with [facility] updated as to pt d/c. F2F picked up. MARCELLUS Morillo
[2016-08-29 11:19] VITALS: BP 191/98; PULSE 75; RESP 16; O2SAT 100
--- NOTE | 2016-08-29 11:41 | PCM.DC.MED ---
Discharge Summary Date of Service Aug 29, 2016 Dates of Hospitalization Date of Hospital Admission Aug 23, 2016 at 19:10 Date of Discharge: Aug 29, 2016 Providers: Admitting Physician: Klaudia Gonzalez MD Primary Care Physician: Nopcp Attending Physician: Klaudia Gonzalez MD Diagnosis at Time of Discharge Diagnosis at Time of Discharge 1. Septic shock. 2. Acute hypercapnic hypoxic respiratory failure. 3. Pneumococcal pneumonia, right upper lobe. 4. Acute kidney injury. Resolved 5. Tobacco use disorder. Consultations Dr. Engle, infectious disease. Dr. Hess, Pulmonary critical care. Procedures XRay, CTs & MRIs Serial chest x-rays revealing a right perihilar infiltrate Chest x-ray post PICC negative for pneumothorax Invasive Procedures PICC line insertion, right arm Brief History PULMONARY/ CRITICAL CARE CONSULTATION Patient is a 66 year old female seizures, osteoarthritis, hypertension and presumed sleep apnea presenting with dyspnea. She presented to [facility] via EMS on 08/23/16 after family found her to be unresponsive. History taken from H&P and ED notes as patient intubated and sedated with no family present from which history can be obtained. On 08/22/16 the patient was more active than is typical for her preparing a large meal for her family. It is believed that she overexerted herself in this process and may have taken extra pain medication for relief of her arthritis discomfort. On 08/23/16 the patient did not awaken at her usual hour and family found her to be unresponsive so EMS was called. In the ED the patient was placed on BiPAP with minor resolution of her altered mental status but then decompensated further with hypotension and increased somnolence. Patient was noted to have lactic acidosis with an ABG of 7.13/80/25/26. Subsequently intubated with fluid resuscitation started. Patient admitted to the ICU for further management. Hospital Course Patient is a 66 year old female seizures, osteoarthritis, hypertension and presumed sleep apnea presenting with dyspnea. She presented to [facility] via EMS on 08/23/16 after family found her to be unresponsive. Patient improved minimally with BiPAP in the ED and then decompensated again. This decompensation required intubation and administration of vasopressors. Patient admitted to the ICU. Hospital day 3 1. Septic shock. POA. This secondary to pneumococcal pneumonia. This is resolved. - Criteria met: Leukocytosis (24), tachypnea (24), presumed respiratory source, SHAWNA (Cr 2.54), lactic acid 4.1, hypotension requiring norepinephrine. - Lactic acid normalized with appropriate fluid resuscitation. Continue IV NS at 75 ml/hr. - Procalcitonin quite elevated at 37. Patient is improved at this point. 2. Acute hypercapnic hypoxic respiratory failure. POA. She was extubated yesterday and is doing well actually on room air today. Review of microbiologic data indicates only pneumococcal antigen positive and otherwise negative cultures. She is still on Flagyl in addition to ceftriaxone which will be stopped today. She is doing well clinically and now is on room air. 3. Pneumococcal pneumonia, right upper lobe. POA. Improving. -Continue ceftriaxone and flagyl, per infectious disease. Discontinue Flagyl yesterday. 4. Acute kidney injury. Resolved 5. Nutrition. -We will encourage increased by mouth intake and ambulation. 6. Tobacco use disorder. - Will plan to discuss cessation strategies when patient is no longer sedated. - Will likely need outpatient following concerning this as well as further evaluation for chronic lung disease. 7. Hypernatremia. Free water deficit. D5W at 50 for 1 L and follow closely. We will recheck labs today. Discharge planning will work with the family to decide whether or not home would be safe. Physical therapy has recommended fpc facility but she is resisting that. Hospital course. This patient was admitted with acute hypoxic respiratory failure as well as hypercapnic failure. She was intubated and sedated and ventilated. Her Was suggestive of a pneumonia. She initially had broad-spectrum antibiotics but then her pneumococcal antigen came back positive and she had her therapy focused. She improved and was extubated without difficulty. Her urine Did show methadone but she denied any ingestion of methadone. He initially had evidence of acute kidney injury felt to be related to hypovolemia but this improved with fluid resuscitation. She initially met criteria for sepsis at the time of admission with leukocytosis tachypnea SHAWNA lactic acid of 4.1 as well as hypotension. She did require norepinephrine and fluid resuscitation and had appropriate lactic acid normalization. She also had an elevated pro- calcitonin 37 when she initially admitted. On discharge she and family are adamant about discharge home and she felt that her near baseline. Family was assuring us that they would help care for her. Home health services were also ordered. Exam Vital Signs (Last) Date Time Temp Pulse Resp B/P Pulse Ox O2 Delivery O2 Flow Rate FiO2 08/29/16 11:19 36.9 75 16 191/98 100 Room Air 08/27/16 01:01 4.00 08/26/16 22:00 35 Exam Alert oriented in no acute distress. Fluent speech. Lungs are clear, normal effort). Heart is regular without murmur gallop or rub. FemoStop medicine Extremities free of edema. Test 08/23/16 17:40 08/23/16 21:58 08/24/16 04:50 08/24/16 06:10 D-Dimer 1.6mg/L (<0.50) Troponin T < 0.010ug/L (0.0-0.011) Urine Color Dark yellow (YELLOW) Urine Appearance Hazy (CLEAR,HAZY) Urine pH 5.0 (5.0-8.0) Urine Specific [place] 1.025 (1.003-1.035) Urine Protein Negativemg/dL (NEG,TRACE) Urine Glucose (UA) Negativemg/dL (NEGATIVE) Urine Ketones Negativemg/dL (NEGATIVE) Urine Occult Blood Negative (NEGATIVE) Urine Nitrite Negative (NEGATIVE) Urine Bilirubin Negative (NEGATIVE) Urine Urobilinogen Normalmg/dL (NORMAL) Urine Leukocyte Esterase Negative (NEGATIVE) Urine RBC 0-2/hpf (0-2) Urine WBC 0-5/hpf (0-5) Urine Epithelial Cells Occasional/hpf (NONE-MOD) Urine Crystals Amorphous urates (NONE Urine Bacteria None/hpf (NONE-FEW) Urine Hyaline Casts None/lpf (NONE) Urine Granular Casts None seen (NONE SEEN) Urine Waxy Casts None seen (NONE SEEN) Urine Red Blood Cell Casts None seen (NONE SEEN) Urine White Blood Cell Casts None seen (NONE SEEN) Urine Mucus None seen (None Seen) Urine Trichomonas None seen (NONE SEEN) Urine Yeast None (NONE SEEN) Urinalysis Comment Urine Culture Reflexed Not indicated Urine Opiates Screen Negative Urine Methadone Screen Positive Urine Barbiturates Screen Negative Urine Amphetamines Screen Negative Urine Benzodiazepines Screen Negative Urine Cocaine Metabolite Screen Negative Urine Cannabinoids Screen Negative Urine Legionella pneumophilia Ag Negative (Negative) Band Neutrophils % 19% (1-5) Lactic Acid Level 1.8mmol/L (0.4-2.0) Test 08/24/16 09:45 08/25/16 05:40 08/27/16 04:35 08/27/16 14:30 Hold Urine Received (Received) Hepatitis C Antibody <0.1s/co ratio (0.0-0.9) Neutrophils (%) (Auto) 79.2% (40-74) Lymphocytes (%) (Auto) 9.2% (14-46) Monocytes (%) (Auto) 10.1% (4-12) Eosinophils (%) (Auto) 0.1% (0-5) Basophils (%) (Auto) 0.2% (0-3) Procalcitonin 6.21ng/mL (See Comment) Phosphorus Level 3.1mg/dL (2.5-4.9) Magnesium Level 2.5mg/dL (1.6-2.6) Test 08/27/16 22:45 08/28/16 09:43 Hold Metcalfe Top Tube Received (Received) White Blood Count 10.6th/mm3 (3.8-10.1) Red Blood Count 3.32mil/mm3 (3.90-5.20) Hemoglobin 9.5g/dL (12.0-15.6) Hematocrit 29.4% (35.0-46.0) Mean Corpuscular Volume 88.6fL (81-100) Mean Corpuscular Hemoglobin 28.6pg (27.0-35.0) Mean Corpuscular Hemoglobin Concent 32.3% (32.0-37.0) Red Cell Distribution Width 13.8% (12.3-15.4) Platelet Count 210bil/L (150-400) Sodium Level 144mEq/L (134-144) Potassium Level 3.9mEq/L (3.5-5.2) Chloride Level 103mEq/L (97-108) Carbon Dioxide Level 31mmol/L (18-29) Blood Urea Nitrogen 4mg/dL (8-27) Creatinine 0.62mg/dL (0.57-1.00) Estimat Glomerular Filtration Rate 138mL/min (>59) Glucose Level 110mg/dL (60-99) Calcium Level 8.7mg/dL (8.5-10.1) Total Bilirubin 0.4mg/dL (0.0-1.2) Aspartate Amino Transf (AST/SGOT) 20U/L (0-50) Alanine Aminotransferase (ALT/SGPT) 13U/L (0-32) Alkaline Phosphatase 90U/L (25-165) Total Protein 6.5g/dL (6.4-8.4) Albumin 3.4g/dL (3.4-5.0) Discharge Medications Discharge Medications Albuterol HFA (Proair HFA) 8.5 Gm Hfa.aer.ad 2 PUFFS INHALATION Q4H (Reported) Cefdinir (Cefdinir) 300 Mg Capsule 300 MG PO BID Prescribed by: PJ ISBELL MD Citalopram (Citalopram) 20 Mg Tablet 20 MG PO DAILY (Reported) Gabapentin (Gabapentin) 300 Mg Capsule 300 MG PO BID (Reported) Hydrochlorothiazide (Hydrochlorothiazide) 25 Mg Tablet 25 MG PO DAILY (Reported ) Lisinopril-Expunged Drug, Do Not Renew! (Lisinopril-Expunged Drug, Do Not Renew! ) 40 Mg Tablet 40 MG PO DAILY (Reported) MAGNESIUM OXIDE-Expunged Drug, Do Not Renew! (MAG-OX 400-Expunged Drug, Do Not Renew!) 400 Mg Tablet 400 MG PO DAILY (Reported) Metoprolol Tart-Expunged Drug, Do Not Renew! (Metoprolol Tart-Expunged Drug, Do Not Renew!) 25 Mg Tab 25 MG PO BID (Reported) Montelukast (Montelukast) 10 Mg Tablet 10 MG PO DAILY (Reported) Piroxicam (Piroxicam) 20 Mg Capsule 20 MG PO DAILY (Reported) Potassium Chl-Expunged Drug, Do Not Renew! (B-Kaf-Quhfevsm Drug, Do Not Renew!) 10 Meq Tab.prt.sr 10 MEQ PO DAILY (Reported) Trazodone (Trazodone) 50 Mg Tablet 50 MG PO HS (Reported) levETIRAcetam-Expunged Drug, Do Not Renew! (Keppra-Expunged Drug, Do Not Renew! ) 500 Mg Tablet 500 MG PO BID (Reported) As needed ([tylenol #3 ]) 1 TAB PO QID PRN PRN (Reported) as needed for pain Albuterol-Expunged Drug, Do Not Renew! (Albuterol-Expunged Drug, Do Not Renew!) 8.5 Gm Aero 8.5 GM INH QID PRN PRN (Reported) Fexofenadine/Pseudoephedrine ER (Ping-D 12 Hour) 1 Each Tablet 1 TABLET PO BID PRN PRN For Congestion (Reported) Fluticasone Propionate (Fluticasone Propionate Nasal) 16 Gm Anderson.susp 2 SPRAY NS QID PRN PRN For Congestion (Reported) Followup Plan Disposition: Home with home health Discharge Diet: No restrictions Discharge Activity: Limited until seen by PCP Follow-up with PCP in: 1 week Time spent 40 minutes Pj Isbell MD Aug 29, 2016 11:41
--- NOTE | 2016-08-29 11:58 | NUR ---
Hypertensive Pt hypertensive and due to discharge; BP 191/98, HR 75; no c/o CP or SOB. paged, no new orders. Will continue to monitor with frequent rounds.
--- NOTE | 2016-08-29 12:01 | NUR ---
Discharge Pt to discharge to home with daughters; c/o 05/31 pain and refusing PO Tylenol for pain. PICC line discontinued. BP 191/98, HR 75 per MD advised pt to take her PO Hydrochlorthiazide at home and continue to monitor her BP at home. Patient and daughter given written and verbal discharge instructions to continue home medications as written. 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 All personal belongings with patient and family members at time of discharge.
--- NOTE | 2016-08-29 12:55 | PROG NOTE ---
[address] [address] PROGRESS NOTE PATIENT: HARJIT HUFFMAN : 1950 MR#: [id number] ADMIT: 08/23/2016 JOB ID: [id number] DATE: 08/29/2016 INFECTIOUS DISEASE FOLLOWUP NOTE: REASON FOR FOLLOWUP: Pneumococcal pneumonia with possible underlying aspiration as well. INTERVAL HISTORY: Since I last saw the patient three days ago she is much improved. Extubated and sitting up in a chair. This morning when I see the patient she denies having any fevers, chills, cough or shortness of breath, or pleuritic chest pain. She says she feels well and is eager to leave. She is currently threatening to pull out her PICC line unless we take it out immediately so that she can go home. PHYSICAL EXAMINATION: Reveals a comfortable but somewhat agitated woman sitting up in a chair. Temperature is 36.5 and she has been afebrile really throughout her six day hospital stay. Pulse in the 80s, respiratory rate 16, blood pressure 175/99. She is saturating well on room air. Eyes without conjunctivitis. Oral cavity negative. Lungs quite clear posteriorly. Cardiac tones regular rate and rhythm. No skin rash noted. PICC line right upper extremity. LABORATORIES: Include a white count which yesterday had reached 10,000, down from 33,000 on admission. Completely normal diff. Creatinine 0.62. LFTs are normal. Procalcitonin was last checked a couple days ago and was 6.2, down from a peak of 37, so down by about 80% since admission. Urine pneumococcal antigen and sputum grew pneumococcus. That pneumococcus was a little bit resistant but still had a penicillin JEANNE of one which suggests that cephalosporins and penicillins would be adequate for it treatment. Of interest it was resistant, however, to macrolides and Bactrim. IMPRESSION: This patient had pneumococcal pneumonia and likely had some component of aspiration as well following the apparent overdose on nonprescription methadone. She has now improved dramatically and by her report is completely ready for discharge and in fact insisting she be discharged this morning. RECOMMENDATIONS: 1. I would continue her on ceftriaxone as long as she is here and make sure she gets a dose today, if in fact she is going home today. 2. In terms of antibiotics as an outpatient, I would use cefdinir 300 mg p.o. b.i.d. for about five more days maximum as the patient has already dramatically improved after five days or so of ceftriaxone. 3. I am not using amoxicillin, which would ordinarily be the drug of choice here, because of the reported history of penicillin allergy, though she has obviously tolerated cephalosporins without any difficulty. Infectious disease will go ahead and sign off at this point as there are no longer any active issues.
== END 2016-08-29 12:25 | disposition home health service (06) | DRG 871 ==
LOC: SED 17:27 → EDBD 17:27 → CCU 19:10 → PCC 08-27 12:07
PROVIDERS: ADMIT Family Medicine; ATTEND Specialist
PROC: 5A1945Z Respiratory Ventilation, 24-96 Consecutive Hours (ICD-10-PCS; principal; 2016-08-23)
PROC: 0BH17EZ Insertion of Endotracheal Airway into Trachea, Via Natural or Artificial Opening (ICD-10-PCS; 2016-08-23)
PROC: 4A033R1 Measurement of Arterial Saturation, Peripheral, Percutaneous Approach (ICD-10-PCS; 2016-08-23)
DX: A41.9 Sepsis, unspecified organism (principal); N17.0 Acute kidney failure with tubular necrosis; J96.02 Acute respiratory failure with hypercapnia; J13 Pneumonia due to Streptococcus pneumoniae; J96.01 Acute respiratory failure with hypoxia; R65.21 Severe sepsis with septic shock; E87.0 Hyperosmolality and hypernatremia; E66.2 Morbid (severe) obesity with alveolar hypoventilation; E87.2 Acidosis; I10 Essential (primary) hypertension; F32.9 Major depressive disorder, single episode, unspecified; F17.210 Nicotine dependence, cigarettes, uncomplicated; F11.90 Opioid use, unspecified, uncomplicated